=== PATIENT | female | born 1955 | race African-American/Black ===

== ENCOUNTER 2016-11-09 21:43 | Emergency (ER) | payer OTHER ==
[2016-11-09 22:04] VITALS: BP 129/72; PULSE 73; RESP 16; TEMP 98.2
[2016-11-09] MEDS ORDERED: hydrOXYzine HCL 25 MG TAB PO STA (22:31)
--- NOTE | 2016-11-09 22:31 | ED ---
General Adult HPI - General Chief complaint: Skin/Abscess/Foreign Body Stated complaint: itchy Time Seen by Provider: 11/09/16 22:21 Source: patient, RN notes reviewed Mode of arrival: ambulatory Limitations: no limitations - History of Present Illness Initial comments: 61-year-old female presents to the emergency Department chief complaint of itchy rash. Patient states started with imaging the finger webs and extends throughout the body. Patient states that she tried breath and increasing with no improvement to her symptoms. Patient states she is concerned due to the continued itching so she thought that she should be evaluated. Patient denies any fever chills. Patient denies any new soaps or detergents. Patient states she was concerned due to her symptoms so she thought that she should be evaluated. Patient denies any recent fever, chills, shortness of breath, chest pain, back pain, abdominal pain, nausea vomiting, numbness or tingling, dysuria or hematuria, constipation or diarrhea, headaches or visual changes, or any other current symptoms. - Related Data Home Medications Medication Instructions Recorded Confirmed Bisoprolol-Hctz 2.5-6.25 mg [Ziac 1 each PO 1500 12/14/15 12/14/15 2.5-6.25] Dicyclomine [Bentyl] 20 mg PO TID 12/14/15 12/14/15 Ergocalciferol [Vitamin D2] 1 tab PO Q7D 12/14/15 12/14/15 Hydrocodone/Acetaminophen [[place] 1 tab PO QID PRN 12/14/15 12/14/15 10-325] Levothyroxine Sodium [Synthroid] 50 mcg PO DAILY 12/14/15 12/14/15 Mesalamine [Delzicol] 800 mg PO TID 12/14/15 12/14/15 Multivitamins, Thera [Multivitamin] 1 tab PO DAILY 12/14/15 12/14/15 Omeprazole [PriLOSEC] 20 mg PO AC-BID 12/14/15 12/14/15 Previous Rx's Medication Instructions Recorded Permethrin 5% Cream [Elimite] 1 applic TOPICAL ONCE #1 cream..g. 11/09/16 hydrOXYzine HCL [Atarax] 10 mg PO TID #10 tab 11/09/16 predniSONE 50 mg PO DAILY #5 tab 11/09/16 Allergies Allergy/AdvReac Type Severity Reaction Status Date / Time No Known Allergies Allergy Verified 12/13/15 08:43 Review of Systems ROS Statement: Those systems with pertinent positive or pertinent negative responses have been documented in the HPI. ROS Other: All systems not noted in ROS Statement are negative. Past Medical History Past Medical History: Deep Vein Thrombosis (DVT), Hypertension, Osteoarthritis ( OA), Pulmonary Embolus (PE), Sleep Apnea/CPAP/BIPAP, Thyroid Disorder Additional Past Medical History / Comment(s): hx ulcer, colitis History of Any Multi-Drug Resistant Organisms: None Reported Past Surgical History: Hysterectomy, Tubal Ligation Additional Past Surgical History / Comment(s): little toe on rt foot surgery, abdominoplasty, liposuction Past Anesthesia/Blood Transfusion Reactions: No Reported Reaction Past Psychological History: No Psychological Hx Reported Smoking Status: Never smoker Past Alcohol Use History: Occasional Past Drug Use History: Marijuana - Past Family History Father Family Medical History: Cancer General Exam Limitations: no limitations General appearance: alert, in no apparent distress Head exam: Present: atraumatic, normocephalic, normal inspection Respiratory exam: Present: normal lung sounds bilaterally. Absent: respiratory distress, wheezes, rales, rhonchi, stridor Cardiovascular Exam: Present: regular rate, normal rhythm, normal heart sounds. Absent: systolic murmur, diastolic murmur, rubs, gallop, clicks GI/Abdominal exam: Present: soft, normal bowel sounds. Absent: distended, tenderness, guarding, rebound, rigid Neurological exam: Present: alert, oriented X3 Psychiatric exam: Present: normal affect, normal mood Skin exam: Present: warm, dry, intact, urticaria (To the abdomen), other ( Papular type rash in the finger webs.) Course Vital Signs 11/09/16 22:02 Temperature 98.2 F Pulse Rate 73 Respiratory 16 Rate Blood Pressure 129/72 O2 Sat by Pulse 97 Oximetry Medical Decision Making - Medical Decision Making 61-year-old male presents with what appears to look like scabies. There is also an ALLERGY component with some urticaria over the abdomen. We will treat patient with permethrin cream as well as a short course of steroids and antihistamine medication. Patient stated that she understood all questions have been answered. She will be discharged home. Disposition Clinical Impression: Scabies, Contact dermatitis Disposition: HOME SELF-CARE Condition: Stable Instructions: Dermatitis (ED), Scabies (ED) Additional Instructions: Please use medication as discussed. Please follow up with family doctor if symptoms have not improved over the next two days. Please return to the emergency room if your symptoms increase or worsen or for any other concerns. Prescriptions: hydrOXYzine HCL [Atarax] 10 mg PO TID #10 tab Permethrin 5% Cream [Elimite] 1 applic TOPICAL ONCE #1 cream..g. predniSONE 50 mg PO DAILY #5 tab Referrals: Sarah Garcia MD [Primary Care Provider] - 1-2 days Time of Disposition: 22:29
== END 2016-11-09 23:02 | disposition home or self-care (01) ==
LOC: EC 21:43
DX: L25.9 Unspecified contact dermatitis, unspecified cause (principal); B86 Scabies; I10 Essential (primary) hypertension; E07.9 Disorder of thyroid, unspecified; Z79.899 Other long term (current) drug therapy
CPT/HCPCS: 99282

== ENCOUNTER → 2024-03-26 | Outpatient (CLI) | payer MEDICARE, OTHER ==
--- NOTE | 2024-03-26 10:16 | CT ---
EXAMINATION TYPE: CT sinus wo con CT DLP: 621 mGycm, Automated exposure control for dose reduction was used. DATE OF EXAM: 03/26/2024 9:06 AM COMPARISON: None. CLINICAL INDICATION: Female, 68 years old with history of J32.9 Chronic sinusitis E04.1 Thyroid nodul e; , Chronic sinusitis TECHNIQUE: Multiple thin axial images were obtained through the paranasal sinuses without the use of IV contrast. Additional coronal and sagittal reformatted images were submitted for evaluation. Contrast used: none Oral contrast used: none FINDINGS: Frontal sinuses: Normally developed and aerated. Frontal Recess: Clear Maxillary Sinuses: Normally developed and aerated. Maxillary Infundibula([facility]): Clear, Aleta cell identified with narrowing of the infundibula.. Ethmoid sinuses: Normally developed and aerated. Ethmoidal notch: Unprotected bilateral anterior ethm oidal arteries. Sphenoid sinuses: Normally developed with minimal mucosal thickening in the posterior aspect on the r ight. There is sellar sphenoid sinus pneumatization without evidence of dehiscence. No dehiscence of carotid canal. No evidence of optic nerve dehiscence within the sphenoid sinus. No evidence of Onodi cells. Sphenoethmoidal recesses: Clear. Nasal septum: Within normal limits.. Nasal Turbinates: Within normal limits. Mastoid air cells & middle ears: The air cells are clear. The middle ears are grossly unremarkable. Modified Soft tissues & Brain: Partially seen without gross abnormality. Globes are intact. Other: Cribriform plate demonstrates symmetric Keros classification type 2 cribriform plate. No evidence of bony dehiscence of skull base. Lamina papyracea is intact without evidence of remote orbital fracture or orbital prolapse into the e thmoid sinus. IMPRESSION: 1. No significant mucosal sinus disease. 2. The ostiomeatal units, frontonasal and sphenoethmoidal recesses are clear. [facility], , 03/26/2024 10:14 AM
--- NOTE | 2024-03-26 11:41 | US ---
EXAMINATION TYPE: US thyroid st tissue head/neck DATE OF EXAM: 03/26/2024 COMPARISON: None available CLINICAL INDICATION: Female, 68 years old with history of THYROID E04.1; h/o nodules, on medication, biopsy on the rt at [facility] TECHNIQUE: Grayscale and color Doppler imaging of the thyroid gland. FINDINGS: GLAND SIZE: Right Lobe: 5.5 x 2.0 x 3.0 cm Overall Parenchyma: heterogeneous Left Lobe: 4.7 x 1.7 x 1.5 cm Overall Parenchyma: heterogeneous Isthmus Thickness: 0.3 cm NODULES RIGHT: # of nodules measured on right: measured largest - previous biopsy 1. 2.6 X 2.0 x 2.4 cm, mid , solid or almost completely solid, hypoechoic nodule, which is wider th an tall, with smooth margins, without echogenic foci. TR 4. Prior size: previous at [facility] LEFT: # of nodules measured on left: 1 1. 0.7 X 0.5 x 0.4 cm, mid , mixed cystic and solid, hypoechoic nodule, which is wider than tall, w ith smooth margins, without echogenic foci. TR 3. Prior size: previous [facility] ISTHMUS: # of nodules measured in the isthmus: 0 Bilateral neck scanned, no evidence of lymphadenopathy. IMPRESSION: 1. Right thyroid lobe 2.6 cm TR 4 nodule. Reported previous biopsy. Comparison with prior imaging is recommended to assess interval change. 2. Subcentimeter left thyroid lobe TR 3 nodule. Recommendation for #1. [facility], , 03/26/2024 11:39 AM
== END | disposition home or self-care (01) ==
LOC: RADCTMAIN 08:36
PROVIDERS: ATTEND Otolaryngology Facial Plastic Surgery
DX: J32.9 Chronic sinusitis, unspecified (principal); E04.2 Nontoxic multinodular goiter
CPT/HCPCS: 70486; 76536

== ENCOUNTER → 2024-05-04 | Outpatient (CLI) | payer MEDICARE, OTHER | END | disposition home or self-care (01) | LOC: LABPAT 16:24 | PROVIDERS: ATTEND Orthopaedic Surgery | DX: Z01.818 Encounter for other preprocedural examination (principal); Z22.322 Carrier or suspected carrier of Methicillin resistant Staphylococcus aureus; M16.12 Unilateral primary osteoarthritis, left hip | CPT/HCPCS: 86850; 86900; 86901; 87070 ==

== ENCOUNTER 2024-05-12 05:45 | Observation (INO) | payer MEDICARE, OTHER ==
[~2024-05-12 05:45] MED LIST: TRANEXAMIC 1,000 MG/100ML-NACL 1,000 MG in SALINE 1 100ML.BAG IVPB PRN
[2024-05-12] MEDS: LACTATED RINGERS 1,000 ML IV SCH (06:49)
[2024-05-12] MEDS: IV FLUID CONTINUATION 1,000 ML IV ONE ×2 (06:49→12:25)
[2024-05-12] MEDS: ACETAMINOPHEN TAB 500 MG TAB PO PRN (07:02)
[2024-05-12] MEDS: MELOXICAM 7.5 MG TAB PO PRN (07:02)
[2024-05-12] MEDS: DEXAMETHASONE SOD PHOSPHATE 4 MG/ML 1 ML VIAL IV ONE (07:03)
[2024-05-12] MEDS: ONDANSETRON 4 MG/2 ML VIAL IVP ONE (07:04)
[2024-05-12] MEDS: MIDAZOLAM 2 MG/2 ML VIAL IV ONE (07:12)
[2024-05-12 07:14] LABS: Basophils % (A) 0 %; Eosinophils # (A) 0.1 k/uL (0-0.7); Eosinophils % (A) 1 %; HCT 36.9 % (34.0-46.0); HGB 11.9 gm/dL (11.4-16.0); Lymphocytes # (A) 1.2 k/uL (1.0-4.8); Lymphocytes % (A) 17 %; MCH 30.5 pg (25.0-35.0); MCHC 32.1 g/dL (31.0-37.0); Mean Platelet Volume 6.7; Monocytes # (A) 0.4 k/uL (0-1.0); Monocytes % (A) 6 %; Neutrophils # (A) 5.2 k/uL (1.3-7.7); Neutrophils % (A) 74 %; Platelet Count 345 k/uL (150-450); RBC 3.89 m/uL (3.80-5.40); RDW 14.7 % (11.5-15.5); WBC 7.1 k/uL (3.8-10.6)
[2024-05-12] MEDS ORDERED: ROPIVACAINE 5 MG/ML 30 ML VIAL ONE (07:25)
[2024-05-12] MEDS ORDERED: DEXAMETHASONE SOD PHOSPHATE 4 MG/ML 1 ML VIAL ONE (07:25)
[2024-05-12] MEDS ORDERED: MIDAZOLAM 2 MG/2 ML VIAL ONE (07:25)
[2024-05-12] MEDS ORDERED: PROPOFOL 10 MG/ML 20 ML VIAL IV ONE (07:25)
[2024-05-12] MEDS ORDERED: PHENYLEPHRINE 10 MG/ML VIAL ONE (07:25)
[2024-05-12] MEDS ORDERED: TRANEXAMIC 1,000 MG/100ML-NACL PREMIX BAG ONE (07:25)
[2024-05-12] MEDS ORDERED: fentaNYL (PF) 50 MCG/ML 2 ML AMP ONE (07:25)
[2024-05-12 07:28] LABS: African American GFR (CKD) >90 (>60 ml/min/1.73 sqM); Anion Gap 2 mmol/L; Blood Urea Nitrogen 19 mg/dL (7-17); Calcium 8.6 mg/dL (8.4-10.2); Carbon Dioxide 36 mmol/L (22-30); Chloride 100 mmol/L (98-107); Glucose 108 mg/dL (74-99); Non-African American GFR(CKD) 85 (>60 ml/min/1.73 sqM); Sodium 138 mmol/L (137-145)
[2024-05-12 07:31] LABS: Potassium 3.4 mmol/L (3.5-5.1)
[2024-05-12 07:50] LABS: Prothrombin Time 10.6 sec (10.0-12.5)
[2024-05-12] MEDS: ceFAZolin 1,000 MG in SODIUM CHLORIDE 0.9% 1,000 ML IRRIGATION ONE (08:11)
[2024-05-12] MEDS ORDERED: NALOXONE 0.4 MG/ML 1 ML VIAL IV PRN (09:24)
[2024-05-12] MEDS ORDERED: MAGNESIUM HYDROXIDE 2,400 MG/30 ML CUP PO PRN (09:24)
[2024-05-12] MEDS ORDERED: HYDROmorphone 0.5 MG/0.5 ML SYRINGE IVP PRN (09:24)
[2024-05-12] MEDS ORDERED: ONDANSETRON 4 MG/2 ML VIAL IVP PRN (09:24)
[2024-05-12] MEDS ORDERED: oxyCODONE-APAP 5-325MG 1 EACH TAB PO PRN (09:27)
--- NOTE | 2024-05-12 09:44 | XR ---
EXAMINATION TYPE: XR Hip Limited LT, FL guidance operating room DATE OF EXAM: 05/12/2024 9:33 AM COMPARISON: Chest radiographs from CLINICAL INDICATION: Female, 68 years old with history of LEFT ANTERIOR HIP, , FINDINGS: Anterior left hip replacement. Underlying severe degenerative change of the left hip. Serial intraope rative fluoroscopic images show placement of left acetabular cup with internal fixation screw, remain ing of the proximal femur, and placement of the femoral stem component. Alignment grossly anatomic. T here is mild degenerative change of the right hip. 26 SEC FL 1.9337 DAP DOSE 3 images are submitted. IMPRESSION: Intraoperative fluoroscopy as outlined above. Uncomplicated appearance left total hip arthroplasty. [facility], , 05/12/2024 9:42 AM
--- NOTE | 2024-05-12 09:46 | P.OP ---
Date of Procedure: 05/12/24 Preoperative Diagnosis: Left hip severe osteoarthrosis Postoperative Diagnosis: Same Procedure(s) Performed: Left total hip arthroplastypress-fitanterior approach Implants: DePuy Corail size 11-125 degree collared press-fit femoral stem, 36+1.5 cobalt chrome femoral head, 54 mm [place] acetabular shell with neutral polyethylene liner. I did utilize a 25 mm x 6.5 mm cancellous screw. Anesthesia: regional, spinal Surgeon: Joaquim Harrell Printing Plate Setter #1: Fito Patterson Estimated Blood Loss (ml): 200 Pathology: none sent Condition: stable Disposition: PACU Indications for Procedure: The patient is a 68-year-old female who presents with progressive left hip pain secondary to osteoarthrosis despite conservative measures. A discussion of the risks and benefits of operative intervention versus continued conservative measures was made with the patient. She opted to proceed with surgery. Operative risks include infection, neurovascular injury, development of blood clots, fracture, leg length discrepancy, instability, possible component loosening/failure and possible need for subsequent procedures was discussed. Informed consent was obtained. Operative Findings: As below Description of Procedure: The patient was brought to the operating room, and after induction of spinal anesthesia was placed supine on the [place] table. Positioning was checked with fluoroscopy. The left hip was then prepped and draped in a normal fashion. A 12 cm incision was then made starting 2 fingerbreadths distal and 3 finger breaths posterior to the ASIS in line with the proximal femur. The skin was incised sharply. Subcutaneous tissues were divided sharply. Electrocautery was used for hemostasis. The fascia was split in line with skin incision. The interval between the sartorius and tensor fascia malcolm was then bluntly developed. The posterior fascia was opened with electrocautery. The lateral circumflex vessels were identified and cauterized prior to sectioning. A retr actor was placed along the superior femoral neck as well as the anterior acetabular rim. A wide capsulotomy was performed. The neck cut was then made at a 45 angle to the shaft approximately 1 1/2 cm above the level of the lesser trochanter. The head was extracted. Attention was then paid towards preparing the acetabular. Anterior and posterior retractors were placed. The remaining capsular labral tissue sharply debrided clearly defining the acetabular margins. I began reaming with a 49 mm reamer taking care to initially medialize then reaming at 45 of abduction and 20 of anteversion. Sequential reaming is performed up to 53 mm. A trial 54 mm acetabular shell was inserted in the same orientation and was fully seated. There was good rim fit and stability. Positioning was checked with fluoroscopy. The final [] mm acetabular shell was inserted again at 45 of abduction and 20 of anteversion. This was fully seated. There was good rim fit and stability. I did place a posterior superior 25 mm x 6.5 mm cancellous screw with good purchase. Again fluoroscopy was used to check the adequacy of placement. A neutral polyethylene liner was gently impacted. Care was taken to avoid any soft tissue interposition. Pulsatile lavage was utilized. Attention was then paid towards preparing the proximal femur. The central region was cleared of soft tissue. A canal finder was used to find the femoral canal. Sequential broaching was performed up to size 11 taking care to lateralize proximally. A calcar mill was used to fashion the medial calcar. There was good rotational stability. A 125 degree neck along with a 36 mm +1.5 head was placed. The hip was gently reduced. Fluoroscopy was used to check the adequacy of positioning along with leg lengths. I felt both were good. The hip was gently dislocated. The trial components were removed. The final size 11 collared 125 degree press-fit femoral stem was inserted parallel to the posterior cortex. This was fully seated and there was good rotational stability. A 36 mm +1.5 cobalt chrome femoral head was placed. This was gently impacted. The hip was then gently reduced. Final fluoroscopic view showed adequate placement implant along with church of leg length. Stability was checked with 80 of external rotation and 60 of extension of the right hip. The wound was irrigated with sterile lavage. The fascia was closed with running 0 Vicryl suture. There was minimal drainage therefore a deep drain was not placed. The second dose of IV TXA was given. The subcutaneous tissues were reapproximated interrupted 2-0 Vicryl sutures. The skin was reapproximated with 3-0 subcuticular strata fix suture. Skin tape and adhesive was applied. A sterile dressing was applied. The patient was then awoken from sedation and transferred to recovery room in good condition. Blood loss was estimated at 200 mL. No complications were incurred. Sponge and needle counts were correct at the end of the case. Fito GUTIÉRREZ assisted during the major components is case to include exposure, bone resection, implantation, and closure.
[2024-05-12] MEDS: HYDROmorphone 0.5 MG/0.5 ML SYRINGE IVP PRN ×2 (10:29→15:38)
--- NOTE | 2024-05-12 10:38 | XR ---
EXAMINATION TYPE: XR Hip Limited LT DATE OF EXAM: 05/12/2024 10:07 AM COMPARISON: None CLINICAL INDICATION: Female, 68 years old with history of Status post hip surgery, assess surgical al ignment, , FINDINGS: Image shows placement of left total hip vertebroplasty. Both acetabular cup and femoral stem componen ts of the prosthesis are well seated without periprosthetic fracture. Alignment grossly anatomic. Sca ttered soft tissue air related to recent operation. IMPRESSION: Uncomplicated postoperative appearance left total hip arthroplasty. [facility], , 05/12/2024 10:36 AM
[2024-05-12] MEDS: HYDROcodone/APAP 10-325MG 1 EACH TAB PO PRN (14:21)
--- NOTE | 2024-05-12 14:47 | P.ANPRN ---
Procedure Note - Anesthesia - Nerve Block Performed Left Guillermo Single Time Out Performed: Yes Date of Procedure: 05/12/24 Procedure Start Time: 07:11 Procedure Stop Time: 07:15 Location of Patient: PreOp Indication: Acute Post-Operative Pain, Requested by Surgeon Sedation Type: Sedate with meaningful contact maintained Preparation: Sterile Prep Position: Supine Needle Types: Pajunk Needle Gauge: 21 Ultrasound used to visualize needle placement: Yes Ultrasound used to observe medication spread: Yes Blood Aspirated: No Pain Paresthesia on Injection Noted: No Resistance on Injection: Normal Image Stored and Saved: Yes Events: Uneventful and Well Tolerated (Ropivacaine 0.5% 20 cc plus dexamethasone 4 mg)
[2024-05-12] MEDS ORDERED: FLUTICASONE NASAL 50MCG/SPRAY 16GM BTL EA NOSTRIL PRN (18:38)
[2024-05-12] MEDS: IPRATROPIUM-ALBUTEROL 3 ML NEB INHALATION SCH (20:54)
[2024-05-12] MEDS: hydrOXYzine pamoate 25 MG CAP PO PRN (21:20)
[2024-05-12] MEDS: SENNOSIDES-DOCUSATE SODIUM 1 EACH TAB PO SCH (21:20)
[2024-05-12] MEDS: DICYCLOMINE 20 MG TAB PO SCH (21:21)
[2024-05-12] MEDS: BALSALAZIDE DISODIUM 750 MG CAPSULE PO SCH (21:21)
[2024-05-13] MEDS: PANTOPRAZOLE 40 MG TABLET PO SCH (06:43)
[2024-05-13] MEDS: LEVOTHYROXINE 25 MCG TAB PO SCH (06:43)
[2024-05-13] MEDS: LORATADINE 10 MG TAB PO SCH (08:33)
[2024-05-13] MEDS: MULTIVITAMINS, THERA 1 EACH TAB PO SCH (08:33)
[2024-05-13] MEDS: BISOPROLOL-HCTZ 2.5-6.25 MG 1 EACH TAB PO SCH (08:33)
[2024-05-13] MEDS: RIVAROXABAN 10 MG TAB PO SCH (08:33)
[2024-05-13] MEDS: DULoxetine HCL 30 MG CAPSULE.DR PO SCH (08:33)
[2024-05-13] MEDS: ERGOCALCIFEROL 1,250 MCG (50,000 IU) CAPSULE PO SCH (08:33)
[2024-05-13 08:49] LABS: Basophils # (A) 0.01 X 10*3/uL (0.00-0.10); Basophils % (A) 0.1 %; Eosinophils # (A) 0 X 10*3/uL (0.04-0.35); Eosinophils % (A) 0 %; HCT 29.2 % (37.2-46.3); HGB 9.2 g/dL (12.0-15.0); Lymphocytes # (A) 1.18 X 10*3/uL (0.90-5.00); Lymphocytes % (A) 13.5 %; MCH 30.9 pg (27.0-32.0); MCHC 31.5 g/dL (32.0-37.0); Mean Platelet Volume 8.9 FL (9.5-12.2); Monocytes # (A) 0.86 X 10*3/uL (0.20-1.00); Monocytes % (A) 9.8 %; NRBC Per 100 WBC 0 X 10*3/uL (0.00-0.01); Neutrophils # (A) 6.65 X 10*3/uL (1.80-7.70); Neutrophils % (A) 76.1 %; Platelet Count 281 X 10*3/uL (140-440); RBC 2.98 X 10*6/uL (4.10-5.20); RDW 14.7 % (11.5-14.5); WBC 8.74 X 10*3/uL (4.50-10.00)
[2024-05-13] MEDS ORDERED: NON FORMULARY DRUG (Omega-3/Dha/Epa/Fish Oil [Fish Oil 500 Mg Softgel] 1 EACH Capsule) PO SCH (09:00)
--- NOTE | 2024-05-13 11:49 | CONS ---
CONSULTATION A 68-year-old white female with a history of COPD, asthma, urinary incontinence, hypothyroidism, irritable bowel syndrome, depression, came to the hospital for status post total knee replacement. Home medications have been reordered. She appears stable. She is up ambulating. PHYSICAL EXAMINATION: CARDIOVASCULAR: S1, S2. LUNGS: Clear. GI: Soft. HEMATOLOGY: Negative Homans. EXTREMITIES: No edema, status post hip replacement. Allergic rhinitis, asthma, COPD, urinary incontinence, hypothyroidism. Continue current home medications. She is cleared for discharge. She is appears to be stable medically. MMODL / IJN: [id number] /
--- NOTE | 2024-05-13 12:28 | P.DS ---
Providers Date of admission: 05/12/2024 Expected date of discharge: 05/13/24 Attending physician: Joaquim Harrell Consults: 05/12/24 09:24 Consult Physician Routine Consulting Provider: Terry Ashton Reason/Comments: medical management s/p direct anterior left total hip arthroplasty Do you want consulting provider notified?: Yes Primary care physician: Terry Ashton [facility] Course: Date of admission: 05/12/2024 Date of discharge: 05/13/2024 Admission diagnosis: Left hip osteoarthritis Discharge diagnosis: Same Attending physician: Dr. Harrell Surgical procedures: Direct anterior left total hip arthroplasty Brief history: Patient is a 68-year-old female with a history of progressive primary left hip osteoarthritis. At this point patient has failed conservative treatment measures and has opted to proceed with a elective direct anterior left total hip arthroplasty. Hospital course: Details of patient's surgery can be found in operative report. Patient tolerated the procedure well and was subsequently transported to orthopedic floor. Patient's orthopeidc and medical care was provided daily. Patient had daily laboratory tests performed for evaluation of overall blood counts. Patient had daily physical therapy to include strengthening range of motion as well as education with walker ambulation. Patient was treated with Xarelto for their postoperative DVT prophylaxis during their inpatient stay. Patient was noted to have a relatively uneventful postoperative course. Patient reported satisfactory pain control with oral pain medications by postoperative day 1. Patient showed satisfactory progress with physical therapy. Patient moved steadily through the program and had no difficulty meeting the goals by postoperative day 1. Given patient's otherwise satisfactory course and having met physical therapy goals, plan is to discharge patient home with health services on postoperative day 1. Discharge condition/disposition: Patient will be discharged home with health services in stable condition. Discharge medications: Instructions are given on resumption of patient's normal daily medications per primary care recommendation, in addition patient will be prescribed Eliquis 2.5 mg Twice daily x 2 weeks; senna; Percocet. Discharge instructions: 1. Wound care and infection precautions, keep incision dry and covered while showering, no lotions, creams, moisturizers. No soaking, tubs, pools, hottubs. Do not scrub over the incision. 2. Weight-bear as tolerated with walker / cane until follow-up. 3. Ice and elevate when necessary. Do not exceed 20 minutes per hour with ice pack. 4. Utilize compression sleeve until seen at first follow up appointment. 5. Visiting nursing care. 6. Home physical therapy. 7. Pain meds and anticoagulants per prescription. 8. Pain medication has potential to cause constipation. Increase oral fluid and fiber intake. Contact primary care provider if you have not had a bowel movement within 48 hours after discharge 9. No anti-inflammatory medication until discussed at first post operative visit, this including Motrin, Aleve, Mobic, Diclofenac. 10. Follow up in office at 2 weeks postop with Jaiden Gutierrez PA-C / Fito Patterson PA-C 11. Follow up with your primary care doctor 7-10 days after discharge. 12. Contact [facility] with any questions, . Assessment: Left hip osteoarthritis Procedures: Left total hip arthroplasty Patient Condition at Discharge: Good Plan - Discharge Summary Discharge Rx Participant: No New Discharge Prescriptions: New oxyCODONE-APAP 5-325MG [Percocet 5-325 mg] 1 tab PO Q6HR PRN #28 tab PRN Reason: Pain Apixaban [Eliquis] 2.5 mg PO BID #60 tab Sennosides/Docusate Sodium [Senna Plus 8.6-50 mg Softgel] 1 each PO DAILY #20 capsule No Action Dicyclomine [Bentyl] 20 mg PO TID Ergocalciferol [Vitamin D2] 1 tab PO Q7D Omeprazole [PriLOSEC] 20 mg PO AC-BID Levothyroxine Sodium [Synthroid] 25 mcg PO DAILY Bisoprolol-Hctz 2.5-6.25 mg [Ziac 2.5-6.25] 1 each PO DAILY Multivitamins, Thera [Multivitamin] 1 tab PO DAILY Hydrocodone/Acetaminophen [[place] 10-325] 1 tab PO QID PRN PRN Reason: Pain Nystatin [Nystatin Oral Susp] 1 unit PO DAILY PRN PRN Reason: thrush Albuterol Inhaler [Ventolin Hfa Inhaler] 1 - 2 inh INHALATION Q6H PRN PRN Reason: Shortness Of Breath Tolterodine ER [Detrol LA] 2 mg PO DAILY Mesalamine [Mesalamine ER] 0.375 gm PO BID DULoxetine HCL [Cymbalta] 30 mg PO DAILY Tiotropium Br/Olodaterol HCl [Stiolto Respimat Inhaler (10)] 1 puff INHALATION BID PRN PRN Reason: Shortness Of Breath Fluticasone Nasal Tabiona [Flonase Nasal Tabiona] 1 spray EA NOSTRIL DAILY PRN PRN Reason: Congestion Loratadine [Claritin] 10 mg PO DAILY [place]-3/Dha/Epa/Fish Oil [Fish Oil 500 mg Softgel] 1 each PO DAILY Discharge Medication List Bisoprolol-Hctz 2.5-6.25 mg [Ziac 2.5-6.25] 1 each PO DAILY 12/14/15 [History] Dicyclomine [Bentyl] 20 mg PO TID 12/14/15 [History] Ergocalciferol [Vitamin D2] 1 tab PO Q7D 12/14/15 [History] Hydrocodone/Acetaminophen [[place] 10-325] 1 tab PO QID PRN 12/14/15 [History] Levothyroxine Sodium [Synthroid] 25 mcg PO DAILY 12/14/15 [History] Multivitamins, Thera [Multivitamin] 1 tab PO DAILY 12/14/15 [History] Omeprazole [PriLOSEC] 20 mg PO AC-BID 12/14/15 [History] Fluticasone Nasal Tabiona [Flonase Nasal Tabiona] 1 spray EA NOSTRIL DAILY PRN 04/22/24 [History] Loratadine [Claritin] 10 mg PO DAILY 04/22/24 [History] Nystatin [Nystatin Oral Susp] 1 unit PO DAILY PRN 04/22/24 [History] [place]-3/Dha/Epa/Fish Oil [Fish Oil 500 mg Softgel] 1 each PO DAILY 04/22/24 [History] Albuterol Inhaler [Ventolin Hfa Inhaler] 1 - 2 inh INHALATION Q6H PRN 05/05/24 [History] DULoxetine HCL [Cymbalta] 30 mg PO DAILY 05/05/24 [History] Mesalamine [Mesalamine ER] 0.375 gm PO BID 05/05/24 [History] Tiotropium Br/Olodaterol HCl [Stiolto Respimat Inhaler (10)] 1 puff INHALATION BID PRN 05/05/24 [History] Tolterodine ER [Detrol LA] 2 mg PO DAILY 05/05/24 [History] Apixaban [Eliquis] 2.5 mg PO BID #60 tab 05/13/24 [Rx] Sennosides/Docusate Sodium [Senna Plus 8.6-50 mg Softgel] 1 each PO DAILY #20 capsule 05/13/24 [Rx] oxyCODONE-APAP 5-325MG [Percocet 5-325 mg] 1 tab PO Q6HR PRN #28 tab 05/13/24 [Rx] Follow up Appointment(s)/Referral(s): Fito Patterson PAC [PHYSICIAN SHELVING SUPERVISOR] - 05/27/24 10:10 am [facility], [NON-STAFF] - 1-2 Days ([facility] will call you to schedule your in home nursing and physical therapy visits. ) Patient Instructions/Handouts: Anterior Hip Replacement (GEN) Activity/Diet/Wound Care/Special Instructions: Orthopedic Discharge Instructions: 1. Wound care and infection precautions, keep incision dry and covered while showering, no lotions, creams, moisturizers. No soaking, pools, hot tubs. Do not scrub over incision. 2. Weight-bear as tolerated with walker / cane until follow-up. 3. Ice and elevate when necessary. Do not exceed 20 minutes per hour with ice pack. 4. Utilize compression sleeve until seen at first follow up appointment. 5. Pain meds and anticoagulants per prescription. 6. Pain medication has potential to cause constipation. Increase oral fluid and fiber intake. Contact primary care provider if you have not had a bowel movement within 48 hours after discharge. 7. No anti-inflammatory medication until discussed at first post operative visit, this including Motrin, Aleve, Mobic, Diclofenac. 8. Follow up in office at 2 weeks postop with Jaiden Gutierrez PA-C / [facility] [place] 9. Follow up with your primary care doctor 7-10 days after discharge. 10. Contact [facility] with any questions, . Keep incision clean, dry, intact. While showering, cover fusion tape with Saran wrap. Keep fusion tape on until follow-up appointment office in 2 weeks. Discharge Disposition: HOME WITH HOME HEALTH SERVICES
--- NOTE | 2024-05-13 12:38 | P.PN ---
Subjective Progress Note Date: 05/13/24 Principal diagnosis: Left hip osteoarthritis Patient was seen at bedside this morning lying in the semi-, position with dressing present over left anterior hip. Patient states she has been up walking several times since surgery yesterday without issue. Patient says she does need a walker for home. Patient says physical therapy did go well this morning and she walked down the hallway and up and down steps. Patient says her grandson will be able to help her out when she is home. Patient says pain is controlled with oral medication. Patient denies any other complaints at this time. Objective - Vital Signs Vital signs: Vital Signs Temp 98.2 F 05/13/24 07:31 Pulse 86 05/13/24 08:30 Resp 17 05/13/24 08:30 BP 151/87 05/13/24 07:31 Pulse Ox 97 05/13/24 07:31 FiO2 Intake & Output 05/12/24 05/13/24 05/13/24 18:59 06:59 18:59 Intake Total 951 Output Total 200 Balance 751 Weight 107.9 kg Intake: IV 951 Output: Estimated Blood Loss 200 Other: Voiding Method Toilet Toilet # Voids 1 3 3 - Exam Left hip: Incision is clean, dry, and intact. The exofin fusion tape is in good condit ion. There is minimal soft tissue swelling and ecchymosis surrounding the medial and lateral aspects of the incision. Calf is soft, no tenderness with palpation. Plantar flexion, dorsiflexion, EHL, FHL are intact. Sensory exam to light touch throughout the extremity is intact, dorsal pedis pulses 2+. - Labs CBC & Chem 7: 05/13/24 02:51 05/12/24 06:49 Labs: Abnormal Lab Results - Last 24 Hours (Table) 05/13/24 Range/Units 02:51 RBC 2.98 L (4.10-5.20) X 10*6/uL Hgb 9.2 L (12.0-15.0) g/dL Hct 29.2 L (37.2-46.3) % MCV 98.0 H (80.0-97.0) FL MCHC 31.5 L (32.0-37.0) g/dL RDW 14.7 H (11.5-14.5) % MPV 8.9 L (9.5-12.2) FL Eosinophils # 0 L (0.04-0.35) X 10*3/uL Assessment and Plan Assessment: 1. Left hip osteoarthritis -Postop day 1 status post direct anterior left total hip arthroplasty Plan: 1. Left hip osteoarthritis -direct anterior left total hip arthroplasty form yesterday, 05/12/2024. Patient stable bedside's morning with dressing present over left hip. Prescription for walker was signed. Discharge home today with health services. 2. Appreciate medical management 3. Pain management -[place]; Percocet 4. GI prophylaxis -senna 5. DVT prophylaxis -Xarelto in hospital. Going home with Eliquis 2.5 mg twice daily x 2 weeks 6. PT/OT - weight-bearing as tolerated with walker 7. Encourage incentive spirometer use 8. Discharge planning -discharge home today with health services Time with Patient: Less than 30
[2024-05-13 14:34] VITALS: BP 146/83; PULSE 65; RESP 18; TEMP 98.1
--- NOTE | 2024-05-14 11:04 | PN ---
PROGRESS NOTE A 68-year-old white female, status post hip surgery. She is doing well. The patient is ambulating. OBJECTIVE: VITAL SIGNS: 97% on room air. Blood pressure is 120 to 150s over 80s, temperature 98.2, pulse 86, respiratory rate 16 to 18. CARDIOVASCULAR: S1, S2. LUNGS: Scattered wheeze. HEMATOLOGY: Negative Homans. PSYCH: Fair mood and affect. Hemoglobin dropped to 9.2 from 11.9. She feels better. Home medications have been reordered. Possibly will be discharged home today as she is up ambulating already status post hip surgery. Continue current home medications. MMODL / IJN: [id number] /
--- NOTE | 2024-05-18 15:02 | P.HPOR ---
History of Present Illness H&P Date: 05/11/24 Chief Complaint: Left hip pain The patient is a 68-year-old female who presents with progressive left hip pain for the past 3 years. She notes anterior thigh and groin pain with weightbearing activities. She's tried medications in addition to previous injections without much relief. She notes daily pain that limits her normal function and activities. Review of Systems As per HPI Past Medical History Past Medical History: Cancer, Deep Vein Thrombosis (DVT), Hypertension, Osteoarthritis (OA), Pulmonary Embolus (PE), Sleep Apnea/CPAP/BIPAP, Thyroid Disorder Additional Past Medical History / Comment(s): hx ulcer, colitis History of Any Multi-Drug Resistant Organisms: None Reported Past Surgical History: Breast Surgery, Hysterectomy, Tubal Ligation Additional Past Surgical History / Comment(s): little toe on rt foot surgery,abdominoplasty, liposuction Past Anesthesia/Blood Transfusion Reactions: No Reported Reaction Past Psychological History: No Psychological Hx Reported Past Alcohol Use History: Occasional Past Drug Use History: Marijuana - Past Family History Father Family Medical History: Cancer Medications and Allergies Home Medications Medication Instructions Recorded Confirmed Type Hydrocodone/Acetaminophen [[place] 1 tab PO QID PRN 12/14/15 05/14/24 History 10-325] Multivitamins, Thera [Multivitamin] 1 tab PO DAILY 12/14/15 05/14/24 History Omeprazole [PriLOSEC] 20 mg PO AC-BID 12/14/15 05/14/24 History Loratadine [Claritin] 10 mg PO DAILY 04/22/24 05/14/24 History [place]-3/Dha/Epa/Fish Oil [Fish Oil 1 cap PO DAILY 04/22/24 05/14/24 History 500 mg Softgel] Albuterol Inhaler [Ventolin Hfa 2 puff INHALATION RT-QID PRN 05/05/24 05/14/24 History Inhaler] DULoxetine HCL [Cymbalta] 30 mg PO DAILY 05/05/24 05/14/24 History Mesalamine [Mesalamine ER] 1.5 gm PO QAM 05/05/24 05/14/24 History Tiotropium Br/Olodaterol HCl 2 puff INHALATION RT-DAILY 05/05/24 05/14/24 History [Stiolto Respimat Inhaler (10)] Apixaban [Eliquis] 2.5 mg PO BID #60 tab 05/13/24 05/14/24 Rx oxyCODONE-APAP 5-325MG [Percocet 1 tab PO Q6HR PRN #28 tab 05/13/24 05/14/24 Rx 5-325 mg] Ammonium Lactate Lotion 1 applic TOPICAL BID 05/14/24 05/14/24 History [Lac-Hydrin 12% Lotion] Azelastine HCl [Astepro] 2 spray EA NOSTRIL BID 05/14/24 05/14/24 History Cyclobenzaprine [Flexeril] 10 mg PO TID PRN #12 tablet 05/14/24 Rx Ergocalciferol [Vitamin D2 (1250 1,250 mcg PO WEEKLY 05/14/24 05/14/24 History Mcg = 91455 Iu)] Ibuprofen [Motrin] 800 mg PO BID PRN 05/14/24 05/14/24 History Levothyroxine Sodium [Synthroid] 25 mcg PO DAILY 05/14/24 05/14/24 History Montelukast [Singulair] 10 mg PO DAILY 05/14/24 05/14/24 History Potassium Chloride ER [K-Dur 20] 20 meq PO BID #8 tab 05/14/24 Rx Sennosides/Docusate Sodium [Senna 1 cap PO DAILY 05/14/24 05/14/24 History Plus 8.6-50 mg Softgel] Tolterodine Tartrate 2 mg PO DAILY 05/14/24 05/14/24 History Allergies Allergy/AdvReac Type Severity Reaction Status Date / Time No Known Allergies Allergy Verified 05/14/24 14:05 Physical Examination - Hip left Gait: antalgic Tenderness with palpation: anterior Pain with motion: internal rotation and hip flexion ROM: flexion: 70 degrees ROM: internal rotation: 0 degrees (With pain) ROM: external rotation: 50 degrees Crepitus with motion: Yes Strength: flexion: 5/5 Strength: abduction: 5/5 Tests: impingement tests: positive Results - Labs Result Diagrams: 05/13/24 02:51 05/12/24 06:49 - Diagnostic results Hip x-ray: image reviewed (X-rays of the left hip obtained in the office show severe osteoarthrosis with [id number] changes and subchondral sclerosis.) Assessment and Plan Assessment: Left hip severe osteoarthrosis History of DVT Plan: I talked to the patient at length regarding her condition along with treatment options. At this point she's quite symptomatic having pain and mechanical symptoms related to her left hip osteoarthrosis despite conservative measures. After a thorough discussion she opts to proceed with surgery. We will plan to proceed with left total hip arthroplasty utilizing an anterior approach. Risks and benefits were discussed at length in layman's terms. We will institute DVT prophylaxis postoperatively.
== END 2024-05-13 16:14 | disposition home health service (06) ==
LOC: OR 05:45 → 4SSUR 05:46 → OR 05-13 16:14
PROVIDERS: ADMIT Orthopaedic Surgery; ATTEND Orthopaedic Surgery
DX: M16.12 Unilateral primary osteoarthritis, left hip (principal); G89.18 Other acute postprocedural pain; J44.9 Chronic obstructive pulmonary disease, unspecified; E03.9 Hypothyroidism, unspecified; F32.A Depression, unspecified; G47.30 Sleep apnea, unspecified; I10 Essential (primary) hypertension; Z86.711 Personal history of pulmonary embolism; Z86.718 Personal history of other venous thrombosis and embolism; Z96.659 Presence of unspecified artificial knee joint; Z79.899 Other long term (current) drug therapy
CPT/HCPCS: 96376 ×2; 96365; 96366; 96375; 94640; 97161; 97166; 64999; 80048; 85025 ×2; 85610; 73501; 27130; G0379; G0378 ×2; C1776; J2250; J1100; J0690 ×3; J2405; J3010; J2795; J2704; J1171 ×2; J2371

== ENCOUNTER 2024-05-14 11:17 | Emergency (ER) | payer MEDICARE, OTHER ==
[2024-05-14 11:21] VITALS: TEMP 98.6
--- NOTE | 2024-05-14 12:08 | ED ---
General Adult HPI - General Chief complaint: Chest Pain Stated complaint: Chest pain R Time Seen by Provider: 05/14/24 11:23 Source: patient, RN notes reviewed Mode of arrival: wheelchair Limitations: no limitations - History of Present Illness Initial comments: Patient is a 68-year-old female presenting to the emergency department with right-sided lateral/posterior thorax discomfort. Onset of symptoms was prior to her surgery 2 days ago. Patient had left hip surgery. Discomfort has increased in that time. Patient also admits to having some cough. No significant dyspnea. Patient also has occasional productive cough. No fever. - Related Data Home Medications Medication Instructions Recorded Confirmed Hydrocodone/Acetaminophen [[place] 1 tab PO QID PRN 12/14/15 05/14/24 10-325] Multivitamins, Thera [Multivitamin] 1 tab PO DAILY 12/14/15 05/14/24 Omeprazole [PriLOSEC] 20 mg PO AC-BID 12/14/15 05/14/24 Loratadine [Claritin] 10 mg PO DAILY 04/22/24 05/14/24 [place]-3/Dha/Epa/Fish Oil [Fish Oil 1 cap PO DAILY 04/22/24 05/14/24 500 mg Softgel] Albuterol Inhaler [Ventolin Hfa 2 puff INHALATION RT-QID PRN 05/05/24 05/14/24 Inhaler] DULoxetine HCL [Cymbalta] 30 mg PO DAILY 05/05/24 05/14/24 Mesalamine [Mesalamine ER] 1.5 gm PO QAM 05/05/24 05/14/24 Tiotropium Br/Olodaterol HCl 2 puff INHALATION RT-DAILY 05/05/24 05/14/24 [Stiolto Respimat Inhaler (10)] Ammonium Lactate Lotion 1 applic TOPICAL BID 05/14/24 05/14/24 [Lac-Hydrin 12% Lotion] Azelastine HCl [Astepro] 2 spray EA NOSTRIL BID 05/14/24 05/14/24 Ergocalciferol [Vitamin D2 (1250 1,250 mcg PO WEEKLY 05/14/24 05/14/24 Mcg = 83675 Iu)] Ibuprofen [Motrin] 800 mg PO BID PRN 05/14/24 05/14/24 Levothyroxine Sodium [Synthroid] 25 mcg PO DAILY 05/14/24 05/14/24 Montelukast [Singulair] 10 mg PO DAILY 05/14/24 05/14/24 Sennosides/Docusate Sodium [Senna 1 cap PO DAILY 05/14/24 05/14/24 Plus 8.6-50 mg Softgel] Tolterodine Tartrate 2 mg PO DAILY 05/14/24 05/14/24 Previous Rx's Medication Instructions Recorded Apixaban [Eliquis] 2.5 mg PO BID #60 tab 05/13/24 oxyCODONE-APAP 5-325MG [Percocet 1 tab PO Q6HR PRN #28 tab 05/13/24 5-325 mg] Cyclobenzaprine [Flexeril] 10 mg PO TID PRN #12 tablet 05/14/24 Potassium Chloride ER [K-Dur 20] 20 meq PO BID #8 tab 05/14/24 Allergies Allergy/AdvReac Type Severity Reaction Status Date / Time No Known Allergies Allergy Verified 05/14/24 14:05 Review of Systems ROS Statement: Those systems with pertinent positive or pertinent negative responses have been documented in the HPI. ROS Other: All systems not noted in ROS Statement are negative. Constitutional: Denies: fever Eyes: Denies: eye pain ENT: Denies: ear pain Respiratory: Reports: as per HPI, cough Cardiovascular: Reports: as per HPI Endocrine: Denies: fatigue Gastrointestinal: Denies: abdominal pain Musculoskeletal: Reports: as per HPI Past Medical History Past Medical History: Deep Vein Thrombosis (DVT), Hypertension, Osteoarthritis (OA), Pulmonary Embolus (PE), Sleep Apnea/CPAP/BIPAP, Thyroid Disorder Additional Past Medical History / Comment(s): hx ulcer, colitis History of Any Multi-Drug Resistant Organisms: None Reported Past Surgical History: Hysterectomy, Tubal Ligation Additional Past Surgical History / Comment(s): little toe on rt foot surgery,abdominoplasty, liposuction Past Anesthesia/Blood Transfusion Reactions: No Reported Reaction Past Psychological History: No Psychological Hx Reported Smoking Status: Former smoker Past Alcohol Use History: Occasional - Past Family History Father Family Medical History: Cancer General Exam Limitations: no limitations General appearance: alert, in no apparent distress Head exam: Present: normocephalic Eye exam: Present: normal appearance Neck exam: Present: normal inspection Respiratory exam: Present: normal lung sounds bilaterally, chest wall tenderness (Right lateral posterior lower ribs) Cardiovascular Exam: Present: regular rate, normal rhythm GI/Abdominal exam: Present: soft. Absent: tenderness Extremities exam: Present: tenderness (Left hip, postoperative hip) Back exam: Present: tenderness (Right lateral/lower posterior ribs) Neurological exam: Present: alert Psychiatric exam: Present: normal affect, normal mood Skin exam: Present: normal color Course Vital Signs 05/14/24 11:18 Temperature 98.6 F Pulse Rate 91 Respiratory 16 Rate Blood Pressure 132/91 O2 Sat by Pulse 97 Oximetry EKG Findings - EKG Results: EKG: interpreted by ERMD, sinus rhythm, normal axis, normal QRS, normal ST/T Medical Decision Making - Medical Decision Making Was pt. sent in by a medical professional or institution ([facility] [place], [facility]ER, urgent care, hospital, or fpc...) When possible be specific @ -No Did you speak to anyone other than the patient for history (EMS, parent, family, police, friend...)? What history was obtained from this source @ -No Did you review nursing and triage notes (agree or disagree)? Why? @ -I reviewed and agree with nursing and triage notes Were old charts reviewed (outside hosp., previous admission, EMS record, old EKG, old radiological studies, urgent care reports/EKG's, fpc records)? Report findings @ -Previous admission review Differential Diagnosis (chest pain, altered mental status, abdominal pain women, abdominal pain men, vaginal bleeding, weakness, fever, dyspnea, syncope, headache, dizziness, GI bleed, back pain, seizure, CVA, palpatations, mental health, musculoskeletal)? @ -Differential Back Pain: Strain, zoster, cauda equina syndrome, epidural abscess, vertebral osteomyelitis, discitis, fracture, subluxation, disc herniation, DJD, spinal stenosis, dissection, AAA, pancreatitis, peptic ulcer disease, pyelonephritis, kidney stone, this is not meant to be an all-inclusive list. EKG interpreted by me (3pts min.). @ -As above X-rays interpreted by me (1pt min.). @ -None done CT interpreted by me (1pt min.). @ -CT scan of the chest does not show infiltrate or embolism U/S interpreted by me (1pt. min.). @ -None done What testing was considered but not performed or refused? (CT, X-rays, U/S, labs)? Why? @ -None What meds were considered but not given or refused? Why? @ -None Did you discuss the management of the patient with other professionals (professionals i.e. , PA, PIPELAYER, lab, RT, psych nurse, social service director, senior database programmer, teacher, tank officer, outpatient case manager)? Give summary @ -I did page Dr. Ashton however he is not available Was smoking cessation discussed for >3mins.? @ -No Was critical care preformed (if so, how long)? @ -No Were there social determinants of health that impacted care today? How? (Homelessness, low income, unemployed, alcoholism, drug addiction, transportation, low edu. Level, literacy, decrease access to med. care, fpc, rehab)? @ -No Was there de-escalation of care discussed even if they declined (Discuss DNR or withdrawal of care, Hospice)? DNR status @ -No What co-morbidities impacted this encounter? (DM, HTN, Smoking, COPD, CAD, Cancer, CVA, ARF, Chemo, Hep., AIDS, mental health diagnosis, sleep apnea, morbid obesity)? @ -Recent hip surgery Was patient admitted / discharged? Hospital course, mention meds given and r oute, prescriptions, significant lab abnormalities, going to OR and other pertinent info. @ -Patient presents with recent hip surgery with pleuritic type right chest discomfort. Evaluation unremarkable. Patient has low potassium and that has been replaced. Patient will be provided short-term prescription and recommended close follow-up. Patient we discharged with close follow-up. Undiagnosed new problem with uncertain prognosis? @ -No Drug Therapy requiring intensive monitoring for toxicity (Heparin, Nitro, Insulin, Cardizem)? @ -No Were any procedures done? @ -No Diagnosis/symptom? @ -Pleuritic chest pain Acute, or Chronic, or Acute on Chronic? @ -Acute Uncomplicated (without systemic symptoms) or Complicated (systemic symptoms)? @ -Complicated with hypokalemia Side effects of treatment? @ -No Exacerbation, Progression, or Severe Exacerbation? @ -No Poses a threat to life or bodily function? How? (Chest pain, USA, MD, pneumonia, PE, COPD, DKA, ARF, appy, cholecystitis, CVA, Diverticulitis, Homicidal, Suicidal, threat to staff... and all critical care pts) @ -No - Lab Data Result diagrams: 05/14/24 12:12 05/14/24 12:12 Lab Results 05/14/24 05/14/24 05/14/24 Range/Units 12:12 12:12 12:12 WBC 10.6 (3.8-10.6) k/uL RBC 3.20 L (3.80-5.40) m/uL Hgb 9.9 L D (11.4-16.0) gm/dL Hct 30.1 L (34.0-46.0) % MCV 94.1 (80.0-100.0) fL MCH 30.8 (25.0-35.0) pg MCHC 32.8 (31.0-37.0) g/dL RDW 15.2 (11.5-15.5) % Plt Count 306 (150-450) k/uL MPV 7.3 Neutrophils % 80 % Lymphocytes % 12 % Monocytes % 7 % Eosinophils % 0 % Basophils % 0 % Neutrophils # 8.4 H (1.3-7.7) k/uL Lymphocytes # 1.3 (1.0-4.8) k/uL Monocytes # 0.7 (0-1.0) k/uL Eosinophils # 0.0 (0-0.7) k/uL Basophils # 0.0 (0-0.2) k/uL PT 10.8 (10.0-12.5) sec INR 1.0 (<1.2) APTT 25.7 (22.0-30.0) sec Sodium 135 L (137-145) mmol/L Potassium 2.8 L (3.5-5.1) mmol/L Chloride 98 (98-107) mmol/L Carbon Dioxide 34 H (22-30) mmol/L Anion Gap 3 mmol/L BUN 10 (7-17) mg/dL Creatinine 0.61 (0.52-1.04) mg/dL Est GFR (CKD-EPI)AfAm >90 (>60 ml/min/1.73 sqM) Est GFR (CKD-EPI)NonAf >90 (>60 ml/min/1.73 sqM) Glucose 102 H (74-99) mg/dL Plasma Lactic Acid Hero (0.7-2.0) mmol/L Calcium 7.9 L (8.4-10.2) mg/dL Total Bilirubin 1.1 (0.2-1.3) mg/dL AST 49 H (14-36) U/L ALT 19 (4-34) U/L Alkaline Phosphatase 123 (38-126) U/L Total Protein 6.7 (6.3-8.2) g/dL Albumin 3.6 (3.5-5.0) g/dL Influenza Type A (PCR) (Not Detectd) Influenza Type B (PCR) (Not Detectd) RSV (PCR) (Not Detectd) SARS-CoV-2 (PCR) (Not Detectd) 05/14/24 05/14/24 Range/Units 12:12 12:12 WBC (3.8-10.6) k/uL RBC (3.80-5.40) m/uL Hgb (11.4-16.0) gm/dL Hct (34.0-46.0) % MCV (80.0-100.0) fL MCH (25.0-35.0) pg MCHC (31.0-37.0) g/dL RDW (11.5-15.5) % Plt Count (150-450) k/uL MPV Neutrophils % % Lymphocytes % % Monocytes % % Eosinophils % % Basophils % % Neutrophils # (1.3-7.7) k/uL Lymphocytes # (1.0-4.8) k/uL Monocytes # (0-1.0) k/uL Eosinophils # (0-0.7) k/uL Basophils # (0-0.2) k/uL PT (10.0-12.5) sec INR (<1.2) APTT (22.0-30.0) sec Sodium (137-145) mmol/L Potassium (3.5-5.1) mmol/L Chloride (98-107) mmol/L Carbon Dioxide (22-30) mmol/L Anion Gap mmol/L BUN (7-17) mg/dL Creatinine (0.52-1.04) mg/dL Est GFR (CKD-EPI)AfAm (>60 ml/min/1.73 sqM) Est GFR (CKD-EPI)NonAf (>60 ml/min/1.73 sqM) Glucose (74-99) mg/dL Plasma Lactic Acid Hero 1.4 (0.7-2.0) mmol/L Calcium (8.4-10.2) mg/dL Total Bilirubin (0.2-1.3) mg/dL AST (14-36) U/L ALT (4-34) U/L Alkaline Phosphatase (38-126) U/L Total Protein (6.3-8.2) g/dL Albumin (3.5-5.0) g/dL Influenza Type A (PCR) Not Detected (Not Detectd) Influenza Type B (PCR) Not Detected (Not Detectd) RSV (PCR) Not Detected (Not Detectd) SARS-CoV-2 (PCR) Not Detected (Not Detectd) Disposition Clinical Impression: Chest wall pain, Hypokalemia Disposition: HOME SELF-CARE Condition: Stable Instructions (If sedation given, give patient instructions): Chest Wall Pain (ED), Hypokalemia (ED) Additional Instructions: Prescription sent to pharmacy. Please do follow-up with her primary care physician in the next couple of days for recheck. You will need to have your potassium rechecked no later than Saturday. Return for increased pain, difficulty breathing, worsening or changing symptoms or any other concerns. Prescriptions: Cyclobenzaprine [Flexeril] 10 mg PO TID PRN #12 tablet PRN Reason: Pain Potassium Chloride ER [K-Dur 20] 20 meq PO BID #8 tab Is patient prescribed a controlled substance at d/c from ED?: No Referrals: Terry Ashton MD [Primary Care Provider] - 1-2 days Time of Disposition: 15:10
[2024-05-14] MEDS: MORPHINE SULFATE 4 MG/ML SYRINGE IVP STA (12:37)
[2024-05-14 12:46] LABS: Partial Thromboplastin Time 25.7 sec (22.0-30.0); Prothrombin Time 10.8 sec (10.0-12.5)
[2024-05-14 12:48] LABS: ALT 19 U/L (4-34); AST 49 U/L (14-36); African American GFR (CKD) >90 (>60 ml/min/1.73 sqM); Albumin 3.6 g/dL (3.5-5.0); Alkaline Phosphatase 123 U/L (38-126); Anion Gap 3 mmol/L; Blood Urea Nitrogen 10 mg/dL (7-17); Calcium 7.9 mg/dL (8.4-10.2); Carbon Dioxide 34 mmol/L (22-30); Chloride 98 mmol/L (98-107); Glucose 102 mg/dL (74-99); Non-African American GFR(CKD) >90 (>60 ml/min/1.73 sqM); Potassium 2.8 mmol/L (3.5-5.1); Sodium 135 mmol/L (137-145); Total Bilirubin 1.1 mg/dL (0.2-1.3); Total Protein 6.7 g/dL (6.3-8.2)
[2024-05-14 12:54] LABS: Basophils % (A) 0 %; Eosinophils % (A) 0 %; HCT 30.1 % (34.0-46.0); Lymphocytes # (A) 1.3 k/uL (1.0-4.8); Lymphocytes % (A) 12 %; MCH 30.8 pg (25.0-35.0); MCHC 32.8 g/dL (31.0-37.0); MCV 94.1 fL (80.0-100.0); Mean Platelet Volume 7.3; Monocytes # (A) 0.7 k/uL (0-1.0); Monocytes % (A) 7 %; Neutrophils # (A) 8.4 k/uL (1.3-7.7); Neutrophils % (A) 80 %; Platelet Count 306 k/uL (150-450); RDW 15.2 % (11.5-15.5); WBC 10.6 k/uL (3.8-10.6)
[2024-05-14 13:00] LABS: HGB 9.9 gm/dL (11.4-16.0)
--- NOTE | 2024-05-14 13:36 | CT ---
EXAMINATION TYPE: CT angio chest CT DLP: 465.7 mGycm, Automated exposure control for dose reduction was used. DATE OF EXAM: 05/14/2024 1:28 PM COMPARISON: None CLINICAL INDICATION:Female, 68 years old with history of R cp; right chest pain, recent surgery TECHNIQUE/CONTRAST: CTA scan of the thorax is performed with IV Contrast, patient injected with 100 mL of Isovue 370, pul monary embolism protocol. MIP images are created and reviewed. FINDINGS: Pulmonary Artery: There is no evidence for a filling defect within the pulmonary vasculature to sugge st acute pulmonary embolism. The pulmonary artery is enlarged measuring 3.6 cm in diameter. No reflu x of contrast in the IVC or hepatic veins. Lungs/Pleura: No pleural effusion or pneumothorax. Minimal subpleural left lower lung atelectatic sly nge. No focal consolidation. No suspicious pulmonary nodule or mass. Airway: Large airways are patent. Heart: The heart is mildly enlarged for size.. Trace anterior pericardial effusion. Vasculature: No evidence of aortic aneurysm. Mediastinum: No evidence of adenopathy. Musculoskeletal: No acute osseous abnormalities. Bilateral shoulder arthropathy. Degenerative disease most pronounced involving the lower thoracic spine. Soft Tissues: Postsurgical changes identified within the right breast with 1.7 cm density identified (series 401, image 71). No visualized maxillary adenopathy. Lower neck: Enlarged right thyroid lobe nodule with substernal extension. Upper Abdomen: No significant findings. IMPRESSION: 1. No evidence of pulmonary embolism or acute thoracic process. 2. Postsurgical changes with a right breast with a 1.7 cm density. May represent postsurgical changes versus other etiologies. Correlate with prior breast imaging. 3. Cardiomegaly. 4. Dilated main pulmonary artery which can seen with pulmonary arterial hypertension. [facility], , 05/14/2024 1:34 PM
[2024-05-14] MEDS: HYDROmorphone 1 MG/ML 1 ML SYRINGE IVP STA (14:16)
[2024-05-14] MEDS: POTASSIUM CHLORIDE 10 MEQ in WATER FOR INJECTION 1 100ML.BAG IVPB STA (14:17)
[2024-05-14] MEDS: POTASSIUM CHLORIDE ER 20 MEQ TAB.ER PO STA ×2 (14:17→15:25)
[2024-05-14 15:16] VITALS: BP 124/86; PULSE 90; RESP 18
== END 2024-05-14 15:25 | disposition home or self-care (01) ==
LOC: EC 11:17
DX: R07.89 Other chest pain (principal); E87.6 Hypokalemia; Z87.891 Personal history of nicotine dependence
CPT/HCPCS: 36415; 93005; 80053; 83605; 85025; 85610; 85730; 87636; 71275; 99285; 96365; 96375 ×2; J2270; J1171; J3480; Q9967

== ENCOUNTER 2024-05-29 10:23 | Day surgery (SDC) | payer MEDICARE, OTHER ==
--- NOTE | 2024-05-29 12:57 | US ---
EXAMINATION TYPE: US FNA thyroid first lesion DATE OF EXAM: 05/29/2024 11:43 AM COMPARISON: 03/26/2024 CLINICAL INDICATION:Female, 68 years old with history of E04.1 NONTOXIC SINGLE THYROID NODULE; , ATTENDING: Dr. Leroy Nugent PROCEDURE: Informed consent was obtained. The risks and benefits of the procedure were discussed with the patien t. The site was marked. Timeout procedure was performed Ultrasound imaging demonstrates right thyroid nodule The patient was prepped, draped in the usual sterile fashion, and locally anesthetized with 1% lidoca ine. Five fine needle aspiration were then performed with a 25 gauge needle. Samples were sent to [facility] pathology department for further analysis. Patient tolerated the procedure without incident and wa s sent home in stable condition. IMPRESSION: Successful ultrasound guided fine needle aspiration [facility], , 05/29/2024 12:55 PM
[2024-05-29 16:53] VITALS: RESP 18; TEMP 98
[2024-05-29 16:55] VITALS: BP 141/74; PULSE 68
== END 2024-05-29 12:00 | disposition home or self-care (01) ==
LOC: RADPROMAIN 10:23
PROVIDERS: ATTEND Otolaryngology Facial Plastic Surgery
DX: E04.1 Nontoxic single thyroid nodule (principal)
CPT/HCPCS: 10005; 88173; 88305

== ENCOUNTER → 2024-06-16 | Outpatient (CLI) | payer MEDICARE, OTHER ==
[2024-06-16 15:45] LABS: HGB 11.3 g/dL (12.0-15.0); MCH 29.4 pg (27.0-32.0); MCHC 29.7 g/dL (32.0-37.0); Mean Platelet Volume 8.6 FL (9.5-12.2); NRBC Per 100 WBC 0 X 10*3/uL (0.00-0.01); Platelet Count 355 X 10*3/uL (140-440); RBC 3.84 X 10*6/uL (4.10-5.20); RDW 14.6 % (11.5-14.5); WBC 6.11 X 10*3/uL (4.50-10.00)
[2024-06-16 16:00] LABS: ALT 21 U/L (8-44); AST 28 U/L (13-35); Albumin 4.1 g/dL (3.8-4.9); Albumin/Globulin Ratio 1.28 Ratio (1.60-3.17); Alkaline Phosphatase 189 U/L (41-126); BUN/Creat Ratio 16.88 Ratio (12.00-20.00); Blood Urea Nitrogen 13.5 mg/dL (9.0-27.0); Calcium 8.9 mg/dL (8.7-10.3); Carbon Dioxide 28.1 mmol/L (21.6-31.8); Chloride 101 mmol/L (96-109); Globulin 3.2 g/dL (1.6-3.3); Glucose 108 mg/dL (70-110); Potassium 4.1 mmol/L (3.5-5.5); Sodium 141 mmol/L (135-145); Total Bilirubin 0.4 mg/dL (0.3-1.2); Total Protein 7.3 g/dL (6.2-8.2)
== END | disposition home or self-care (01) ==
LOC: LABWHC1 10:23
PROVIDERS: ATTEND Internal Medicine Gastroenterology
DX: K51.90 Ulcerative colitis, unspecified, without complications (principal)
CPT/HCPCS: 36415; 80053; 85027

== ENCOUNTER → 2024-06-17 | Outpatient (CLI) | payer MEDICARE, OTHER ==
[2024-06-17 15:30] LABS: INR 0.94 sec (0.93-1.11); Prothrombin Time 10.6 sec (9.9-11.9)
== END | disposition home or self-care (01) ==
LOC: LABPAT 09:25
PROVIDERS: ATTEND Orthopaedic Surgery
DX: Z01.812 Encounter for preprocedural laboratory examination (principal); M16.11 Unilateral primary osteoarthritis, right hip
CPT/HCPCS: 36415; 85610; 86850; 86900; 86901

== ENCOUNTER 2024-06-23 05:40 | Day surgery (SDC) | payer MEDICARE, OTHER ==
--- NOTE | 2024-05-11 08:27 | P.HPOR ---
History of Present Illness H&P Date: 05/11/24 Chief Complaint: Left hip pain The patient is a 68-year-old female who presents with progressive left hip pain for the past 3 years. She notes anterior thigh and groin pain with weightbearing activities. She's tried medications in addition to previous injections without much relief. She notes daily pain that limits her normal function and activities. Review of Systems As per HPI Past Medical History Past Medical History: Cancer, Deep Vein Thrombosis (DVT), Hypertension, Osteoarthritis (OA), Pulmonary Embolus (PE), Sleep Apnea/CPAP/BIPAP, Thyroid Disorder Additional Past Medical History / Comment(s): hx ulcer, colitis History of Any Multi-Drug Resistant Organisms: None Reported Past Surgical History: Breast Surgery, Hysterectomy, Tubal Ligation Additional Past Surgical History / Comment(s): little toe on rt foot surgery,abdominoplasty, liposuction Past Anesthesia/Blood Transfusion Reactions: No Reported Reaction Past Psychological History: No Psychological Hx Reported Past Alcohol Use History: Occasional Past Drug Use History: Marijuana - Past Family History Father Family Medical History: Cancer Medications and Allergies Home Medications Medication Instructions Recorded Confirmed Type Bisoprolol-Hctz 2.5-6.25 mg [Ziac 1 each PO DAILY 12/14/15 05/05/24 History 2.5-6.25] Dicyclomine [Bentyl] 20 mg PO TID 12/14/15 05/05/24 History Ergocalciferol [Vitamin D2] 1 tab PO Q7D 12/14/15 05/05/24 History Hydrocodone/Acetaminophen [[place] 1 tab PO QID PRN 12/14/15 05/05/24 History 10-325] Levothyroxine Sodium [Synthroid] 25 mcg PO DAILY 12/14/15 05/05/24 History Multivitamins, Thera [Multivitamin] 1 tab PO DAILY 12/14/15 05/05/24 History Omeprazole [PriLOSEC] 20 mg PO AC-BID 12/14/15 05/05/24 History Fluticasone Nasal [place] [Flonase 1 spray EA NOSTRIL DAILY PRN 04/22/24 05/05/24 History Nasal [place]] Loratadine [Claritin] 10 mg PO DAILY 04/22/24 05/05/24 History Nystatin [Nystatin Oral Susp] 1 unit PO DAILY PRN 04/22/24 05/05/24 History [place]-3/Dha/Epa/Fish Oil [Fish Oil 1 each PO DAILY 04/22/24 05/05/24 History 500 mg Softgel] Albuterol Inhaler [Ventolin Hfa 1 - 2 inh INHALATION Q6H PRN 05/05/24 05/05/24 History Inhaler] DULoxetine HCL [Cymbalta] 30 mg PO DAILY 05/05/24 05/05/24 History Mesalamine [Mesalamine ER] 0.375 gm PO BID 05/05/24 05/05/24 History Tiotropium Br/Olodaterol HCl 1 puff INHALATION BID PRN 05/05/24 05/05/24 History [Stiolto Respimat Inhaler (10)] Tolterodine ER [Detrol LA] 2 mg PO DAILY 05/05/24 05/05/24 History Allergies Allergy/AdvReac Type Severity Reaction Status Date / Time No Known Allergies Allergy Verified 05/05/24 13:28 Physical Examination - Hip left Gait: antalgic Tenderness with palpation: anterior Pain with motion: internal rotation and hip flexion ROM: flexion: 70 degrees ROM: internal rotation: 0 degrees (With pain) ROM: external rotation: 50 degrees Crepitus with motion: Yes Strength: flexion: 5/5 Strength: abduction: 5/5 Tests: impingement tests: positive Results - Diagnostic results Hip x-ray: image reviewed (X-rays of the left hip obtained in the office show severe osteoarthrosis with [id number] changes and subchondral sclerosis.) Assessment and Plan Assessment: Left hip severe osteoarthrosis History of DVT Plan: I talked to the patient at length regarding her condition along with treatment options. At this point she's quite symptomatic having pain and mechanical symptoms related to her left hip osteoarthrosis despite conservative measures. After a thorough discussion she opts to proceed with surgery. We will plan to proceed with left total hip arthroplasty utilizing an anterior approach. Risks and benefits were discussed at length in layman's terms. We will institute DVT prophylaxis postoperatively.
--- NOTE | 2024-06-22 08:24 | P.HPOR ---
History of Present Illness H&P Date: 06/22/24 Chief Complaint: Right hip pain The patient is a 68-year-old female who presents with progressive right hip pain for the past 3 years. She is having pain with any weightbearing activities. She notes groin and thigh pain. She has tried medications in addition to injections without much relief. She notes daily pain that limits her. Review of Systems Per HPI Past Medical History Past Medical History: Deep Vein Thrombosis (DVT), Hyperlipidemia, Hypertension, Osteoarthritis (OA), Pulmonary Embolus (PE), Sleep Apnea/CPAP/BIPAP, Thyroid Disorder Additional Past Medical History / Comment(s): hx ulcer, colitis History of Any Multi-Drug Resistant Organisms: None Reported Past Surgical History: Hysterectomy, Tubal Ligation Additional Past Surgical History / Comment(s): little toe on rt foot surgery,abdominoplasty, liposuction, ivc filter, Past Anesthesia/Blood Transfusion Reactions: No Reported Reaction Additional Past Anesthesia/Blood Transfusion Reaction / Comment(s): no reaction to blood tx Smoking Status: Never smoker - Past Family History Father Family Medical History: Cancer Medications and Allergies Home Medications Medication Instructions Recorded Confirmed Type Hydrocodone/Acetaminophen [[place] 1 tab PO QID PRN 12/14/15 06/17/24 History 10-325] Multivitamins, Thera [Multivitamin] 1 tab PO DAILY 12/14/15 06/17/24 History Omeprazole [PriLOSEC] 20 mg PO AC-BID 12/14/15 06/17/24 History [place]-3/Dha/Epa/Fish Oil [Fish Oil 1 cap PO DAILY 04/22/24 06/17/24 History 500 mg Softgel] Albuterol Inhaler [Ventolin Hfa 2 puff INHALATION RT-QID PRN 05/05/24 06/17/24 History Inhaler] DULoxetine HCL [Cymbalta] 30 mg PO DAILY 05/05/24 06/17/24 History Mesalamine [Mesalamine ER] 1.5 gm PO QAM 05/05/24 06/17/24 History Tiotropium Br/Olodaterol HCl 2 puff INHALATION RT-DAILY 05/05/24 06/17/24 History [Stiolto Respimat Inhaler (10)] Ammonium Lactate Lotion 1 applic TOPICAL BID 05/14/24 06/17/24 History [Lac-Hydrin 12% Lotion] Azelastine HCl [Astepro] 2 spray EA NOSTRIL BID 05/14/24 06/17/24 History Ergocalciferol [Vitamin D2 (1250 1,250 mcg PO WEEKLY 05/14/24 06/17/24 History Mcg = 22228 Iu)] Levothyroxine Sodium [Synthroid] 25 mcg PO DAILY 05/14/24 06/17/24 History Montelukast [Singulair] 10 mg PO DAILY 05/14/24 06/17/24 History Tolterodine Tartrate 2 mg PO DAILY 05/14/24 06/17/24 History Amoxicillin 875 mg PO Q12HR 06/17/24 06/17/24 History Dicyclomine [Bentyl] 10 mg PO DIRECTED 06/17/24 06/17/24 History Ferosul 325 mg PO DAILY 06/17/24 06/17/24 History Fexofenadine HCl [Leslie Allergy] 180 mg PO DAILY 06/17/24 06/17/24 History Fluconaszole 50 mg PO DAILY 06/17/24 06/17/24 History Hairskinnails 1 tab PO DAILY 06/17/24 06/17/24 History Losartan(Unk) 10 mg PO DAILY 06/17/24 06/17/24 History Allergies Allergy/AdvReac Type Severity Reaction Status Date / Time No Known Allergies Allergy Verified 05/14/24 14:05 Physical Examination - Hip right Gait: antalgic Tenderness with palpation: anterior Pain with motion: internal rotation and hip flexion ROM: flexion: 70 degrees ROM: internal rotation: 0 degrees (With pain) ROM: external rotation: 50 degrees Strength: extension: 5/5 Strength: flexion: 5/5 Strength: abduction: 5/5 Tests: impingement tests: positive Results The patient is a well-developed well-nourished female approximately 5 foot 8, 234 pounds of endomorphic habitus. HEENT exam is nonfocal, neck is supple. She has painful passive motion of the right hip. Straight leg raise is negative. Her distal neurovascular exam appears intact in the right lower extremity. She has an antalgic gait pattern. - Diagnostic results Hip x-ray: image reviewed (2 views of the right hip obtained in the office show severe osteoarthrosis with [id number] changes and subchondral sclerosis.) Assessment and Plan Assessment: Right hip severe osteoarthrosis History of DVT/PE with IVC filter Plan: I talked to the patient at length regarding her condition along with treatment options. At this point she is quite symptomatic having significant pain related to her right hip osteoarthrosis despite conservative measures. After a thorough discussion she opts to proceed with surgery. We will plan to proceed with right total hip arthroplasty utilizing an anterior approach. Risks and benefits were discussed at length in layman's terms. We will institute DVT prophylaxis postoperatively.
[2024-06-23] MEDS ORDERED: LIDOCAINE 1% (10MG/ML) FOR IV START INTRADERMA PRN (06:35)
[2024-06-23] MEDS: MELOXICAM 7.5 MG TAB PO PRN (06:37)
[2024-06-23] MEDS: ACETAMINOPHEN TAB 500 MG TAB PO PRN (06:37)
[2024-06-23] MEDS: IV FLUID CONTINUATION 1,000 ML IV ONE (06:45)
[2024-06-23] MEDS: LACTATED RINGERS 1,000 ML IV SCH (06:46)
[2024-06-23] MEDS: ONDANSETRON 4 MG/2 ML VIAL IVP ONE (06:46)
[2024-06-23] MEDS: DEXAMETHASONE SOD PHOSPHATE 4 MG/ML 1 ML VIAL IV ONE (06:46)
[2024-06-23] MEDS ORDERED: fentaNYL (PF) 50 MCG/ML 2 ML AMP IVP PRN (07:00)
[2024-06-23] MEDS: MIDAZOLAM 2 MG/2 ML VIAL IV PRN (07:11)
[2024-06-23] MEDS ORDERED: PROPOFOL 10 MG/ML 20 ML VIAL IV ONE (07:25)
[2024-06-23] MEDS ORDERED: fentaNYL (PF) 50 MCG/ML 2 ML AMP ONE (07:25)
[2024-06-23] MEDS ORDERED: ROPIVACAINE 5 MG/ML 30 ML VIAL ONE (07:25)
[2024-06-23] MEDS ORDERED: TRANEXAMIC 1,000 MG/100ML-NACL PREMIX BAG ONE (07:25)
[2024-06-23] MEDS ORDERED: DEXAMETHASONE SOD PHOSPHATE 4 MG/ML 1 ML VIAL ONE (07:25)
[2024-06-23] MEDS ORDERED: PHENYLEPHRINE-0.9% NACL SYG 1,000 MCG/10 ML SYRINGE ONE (07:25)
[2024-06-23] MEDS ORDERED: MIDAZOLAM 2 MG/2 ML VIAL ONE (07:25)
[2024-06-23] MEDS ORDERED: LIDOCAINE 1% INJ 10MG/ML (20 ML MDV) ONE (07:25)
[2024-06-23] MEDS: ceFAZolin 1,000 MG in SODIUM CHLORIDE 0.9% 1,000 ML IRRIGATION ONE (08:05)
[2024-06-23] MEDS: LACTATED RINGERS 1,000 ML IV ONE (08:30)
--- NOTE | 2024-06-23 09:17 | FL ---
EXAMINATION TYPE: FL guidance operating room, XR Hip Limited RT DATE OF EXAM: 06/23/2024 9:11 AM COMPARISON: Pre Operative Images if available both CT/MRI or plain film CLINICAL INDICATION: Female, 68 years old with history of RT ANTERIOR HIP; TECHNIQUE: FL guidance operating room, XR Hip Limited RT, multiple fluoroscopic images provided for p rocedure. Total fluoroscopy time: 23 seconds Total submitted images to PACS: 4 DAP: 1.6943 mGym2 Gycm2 uGym2 cGycm2 or equivalent. FINDINGS: Fluoroscopic images during internal fixation/arthroplasty demonstrate hardware in appropriate positio n. Hardware appears intact. No immediate complication identified. IMPRESSION: 1. No evidence for intraoperative complication. 2. Please see the operative/procedural note for further details. [facility], , 06/23/2024 9:15 AM
[2024-06-23] MEDS ORDERED: NALOXONE 0.4 MG/ML 1 ML VIAL IV PRN (09:21)
[2024-06-23] MEDS ORDERED: HYDROmorphone 0.5 MG/0.5 ML SYRINGE IVP PRN (09:21)
[2024-06-23] MEDS ORDERED: hydrOXYzine pamoate 25 MG CAP PO PRN (09:22)
[2024-06-23] MEDS ORDERED: MAGNESIUM HYDROXIDE 2,400 MG/30 ML CUP PO PRN (09:22)
--- NOTE | 2024-06-23 09:34 | P.OP ---
Date of Procedure: 06/23/24 Preoperative Diagnosis: Right hip severe osteoarthrosis Postoperative Diagnosis: Same Procedure(s) Performed: Right total hip arthroplastypress-fitanterior approach Implants: DePuy Corail size 11-125 degree/collared press-fit femoral stem, 36+1.5 cobalt chrome femoral head, 54 mm Osprey acetabular shell with neutral polyethylene liner. I did utilize a 25 mm x 6.5 mm cancellous screw. Anesthesia: spinal Surgeon: Joaquim Harrell [place]k #1: Fito Patterson Estimated Blood Loss (ml): 100 Pathology: none sent Condition: stable Disposition: PACU Indications for Procedure: The patient is a 68-year-old female who presents with progressive right hip pain secondary to osteoarthrosis despite conservative measures. A discussion of the risks and benefits of operative invention versus continued conservative measures was made with the patient. She opted to proceed with surgery. Operative risks include infection, neurovascular injury, development of blood clots, fracture, leg length discrepancy, instability, possible component loosening/failure and possible need for subsequent procedures was discussed. Informed consent was obtained. Operative Findings: As below Description of Procedure: The patient was brought to the operating room, and after induction of spinal anesthesia was placed supine on the [place] table. Positioning was checked with fluoroscopy. The right hip was then prepped and draped in a normal fashion. A 12 cm incision was then made starting 2 fingerbreadths distal and 3 finger breaths posterior to the ASIS in line with the proximal femur. The skin was incised sharply. Subcutaneous tissues were divided sharply. Electrocautery was used for hemostasis. The fascia was split in line with skin incision. The interval between the sartorius and tensor fascia malcolm was then bluntly developed. The posterior fascia was opened with electrocautery. The lateral circumflex vessels were identified and cauterized prior to sectioning. A retractor was placed along the superior femoral neck as well as the anterior acetabular rim. A wide capsulotomy was performed. The neck cut was then made at a 45 angle to the shaft approximately 1 1/2 cm above the level of the lesser trochanter. The head was extracted. Attention was then paid towards preparing the acetabular. Anterior and posterior retractors were placed. The remaining capsular labral tissue sharply debrided clearly defining the acetabular margins. I began reaming with a 49 mm reamer taking care to initially medialize then reaming at 45 of abduction and 20 of anteversion. Sequential reaming is performed up to 53 mm. A trial 54 mm acetabular shell was inserted in the same orientation and was fully seated. There was good rim fit and stability. Positioning was checked with fluoroscopy. The final 54 mm acetabular shell was inserted again at 45 of abduction and 20 of anteversion. This was fully seated. There was good rim fit and stability. I did place a posterior superior screw for additional stability. A 6.5 x 25 mm cancellous groove was inserted with good purchase. Again fluoroscopy was used to check the adequacy of placement. A neutral polyethylene liner was gently impacted. Care was taken to avoid any soft tissue interposition. Pulsatile lavage was utilized. Attention was then paid towards preparing the proximal femur. The central region was cleared of soft tissue. A canal finder was used to find the femoral canal. Sequential broaching was performed up to size 11 taking care to lateralize proximally. A calcar mill was used to fashion the medial calcar. There was good rotational stability. A 125 degree neck along with a 36 mm +1.5 head was placed. The hip was gently reduced. Fluoroscopy was used to check the adequacy of positioning along with leg lengths. I felt both were good. The hip was gently dislocated. The trial components were removed. The final size 11 collared 125 degree press-fit femoral stem was inserted parall el to the posterior cortex. This was fully seated and there was good rotational stability. A 36 mm +1.5 cobalt chrome femoral head was placed. This was gently impacted. The hip was then gently reduced. Final fluoroscopic view showed adequate placement implant along with jehovah's witness of leg length. Stability was checked with 80 of external rotation and 60 of extension of the right hip. The wound was irrigated with sterile lavage. The fascia was closed with running 0 Vicryl suture. There was minimal drainage therefore a deep drain was not placed. The second dose of IV TXA was given. The subcutaneous tissues were reapproximated interrupted 2-0 Vicryl sutures. The skin was reapproximated with 3-0 subcuticular strata fix suture. Skin tape and adhesive was applied. A sterile dressing was applied. The patient was then awoken from sedation and transferred to recovery room in good condition. Blood loss was estimated at 100 mL. No complications were incurred. Sponge and needle counts were correct at the end of the case. Fito Patterson PA assisted during the major components is case to include exposure, bone resection, implantation, and closure.
--- NOTE | 2024-06-23 09:39 | XR ---
EXAMINATION TYPE: XR Hip Limited RT DATE OF EXAM: 06/23/2024 9:32 AM COMPARISON: None. CLINICAL INDICATION: Female, 68 years old with history of Status post hip surgery, assess surgical al ignment, pain TECHNIQUE: AP view(s) obtained. FINDINGS: Femoral prosthesis has been placed. The acetabular component is present. Postsurgical soft tissue sly nges are evident. No acute fractures evident. IMPRESSION: 1. No acute fractures post right hip replacement [facility], , 06/23/2024 9:36 AM
[2024-06-23] MEDS: HYDROmorphone 0.5 MG/0.5 ML SYRINGE IVP PRN ×2 (09:45→15:17)
--- NOTE | 2024-06-23 09:58 | P.ANPRN ---
Procedure Note - Anesthesia - Nerve Block Performed Right Guillermo Single Time Out Performed: Yes ([id number]) Date of Procedure: 06/23/24 Location of Patient: PreOp Indication: Acute Post-Operative Pain, Dx/Pain Location, Requested by Surgeon Specifically requested for management of pain by DrKimo: Joaquim Harrell Sedation Type: Sedate with meaningful contact maintained (right hip) Preparation: Sterile Prep Position: Supine Needle Types: Pajunk Needle Gauge: 21 Ultrasound used to visualize needle placement: Yes Ultrasound used to observe medication spread: Yes Injectate: 0.5% Ropivacaine (see comment for volume) (30 mL +10 mL of normal saline + 4mg of decadron) Blood Aspirated: No Pain Paresthesia on Injection Noted: No Resistance on Injection: Normal Image Stored and Saved: Yes Events: Uneventful and Well Tolerated
[2024-06-23] MEDS: SENNOSIDES-DOCUSATE SODIUM 1 EACH TAB PO SCH (20:57)
--- NOTE | 2024-06-23 21:22 | P.CONS ---
History of Present Illness - Reason for Consult Consult date: 06/23/24 Medical management Requesting physician: Joaquim Harrell - Chief Complaint Right hip surgery - History of Present Illness I am covering Dr. Stewart neurology called me this evening, he is not feeling well Pleasant 68-year-old patient, follows with Dr. Terry Ashton. Chronic medical conditions include hyperlipidemia hypertension osteoarthritis obstructive sleep apnea. Patient has undergone right total hip arthroplasty. Pain is reasonably controlled. He tolerated dinner. No nausea vomiting. No chest pain. Laying in bed. Review of systems: GEN.: None EYES: None HEENT: None NECK: None RESPIRATORY: None CARDIOVASCULAR: None GASTROINTESTINAL: None GENITOURINARY: None MUSCULOSKELETAL: [Joint pains LYMPHATICS: None HEMATOLOGICAL: None PSYCHIATRY: None NEUROLOGICAL: None Social history: Did smoke marijuana. Alcohol occasionally. No cigarette smoking. Physical examination: VITAL SIGNS: 97.9, 96, 17, 158 x 84, 95% room air GENERAL: BMI 36.7, reclining bed awake comfortable. EYES: Pupils equal. Conjunctiva josefina l. HEENT: External appearance of nose and ears normal, oral cavity grossly normal. NECK: JVD not raised; masses not palpable. HEART: First and second heart sounds are normal; no edema. LUNGS: Respiratory rate normal; clear to auscultation. ABDOMEN: Soft, nontender, liver spleen not palpable, no masses palpable. PSYCH: Alert and oriented x3; mood and affect josefina l. MUSCULOSKELETAL:No Clubbing/cyanosis;muscles-grossly intact. Dressing over the right hip. Incision site NEUROLOGICAL: Cranial nerves grossly intact; no facial asymmetry, power and sensation grossly intact. LYMPHATICS: No lymph nodes palpable in the axilla and neck INVESTIGATIONS, reviewed in the clinical context: June 16, 2024: White count 6.1 hemoglobin 11.3 platelets 355 potassium 4.1 creatinine 0.8 sodium 141 Assessment plan: -Right total hip arthroplasty IV cefazolin for infection prophylaxis. 1 dose of Decadron. DVT prophylaxis per orthopedics team -COPD Stiolto inhaler, albuterol as needed -Hypothyroid Synthroid 25 mcg a day -Chronic urine incontinence Tolterodine -GERD Prilosec -Chronic colitis Mesalamine -Obesity BMI 36.7 Weight loss measures Care was discussed with the patient. Questions answered. Thank you Dr. Harrell Past Medical History Past Medical History: Deep Vein Thrombosis (DVT), Hyperlipidemia, Hypertension, Osteoarthritis (OA), Pulmonary Embolus (PE), Sleep Apnea/CPAP/BIPAP, Thyroid Disorder Additional Past Medical History / Comment(s): hx ulcer, colitis History of Any Multi-Drug Resistant Organisms: None Reported Past Surgical History: Hysterectomy, Tubal Ligation Additional Past Surgical History / Comment(s): little toe on rt foot surgery,abdominoplasty, liposuction, ivc filter, Past Anesthesia/Blood Transfusion Reactions: No Reported Reaction Additional Past Anesthesia/Blood Transfusion Reaction / Comm: no reaction to blood tx Past Psychological History: No Psychological Hx Reported Smoking Status: Never smoker Past Alcohol Use History: Occasional Past Drug Use History: Marijuana - Past Family History Father Family Medical History: Cancer Medications and Allergies Home Medications Medication Instructions Recorded Confirmed Type Hydrocodone/Acetaminophen [[place] 1 tab PO QID PRN 12/14/15 06/17/24 History 10-325] Multivitamins, Thera [Multivitamin] 1 tab PO DAILY 12/14/15 06/17/24 History Omeprazole [PriLOSEC] 20 mg PO AC-BID 12/14/15 06/17/24 History [place]-3/Dha/Epa/Fish Oil [Fish Oil 1 cap PO DAILY 04/22/24 06/17/24 History 500 mg Softgel] Albuterol Inhaler [Ventolin Hfa 2 puff INHALATION RT-QID PRN 05/05/24 06/17/24 History Inhaler] Mesalamine [Mesalamine ER] 1.5 gm PO QAM 05/05/24 06/17/24 History Tiotropium Br/Olodaterol HCl 2 puff INHALATION RT-DAILY 05/05/24 06/23/24 History [Stiolto Respimat Inhaler (10)] Ammonium Lactate Lotion 1 applic TOPICAL BID 05/14/24 06/23/24 History [Lac-Hydrin 12% Lotion] Azelastine HCl [Astepro] 2 spray EA NOSTRIL BID 05/14/24 06/23/24 History Ergocalciferol [Vitamin D2 (1250 1,250 mcg PO WEEKLY 05/14/24 06/17/24 History Mcg = 53386 Iu)] Levothyroxine Sodium [Synthroid] 25 mcg PO DAILY 05/14/24 06/23/24 History Montelukast [Singulair] 10 mg PO DAILY 05/14/24 06/17/24 History Tolterodine Tartrate 2 mg PO DAILY 05/14/24 06/17/24 History Dicyclomine [Bentyl] 10 mg PO DIRECTED 06/17/24 06/23/24 History Ferosul 325 mg PO DAILY 06/17/24 06/17/24 History Fexofenadine HCl [Leslie Allergy] 180 mg PO DAILY 06/17/24 06/17/24 History Fluconaszole 50 mg PO DAILY 06/17/24 06/17/24 History Hairskinnails 1 tab PO DAILY 06/17/24 06/23/24 History Losartan(Unk) 10 mg PO DAILY 06/17/24 06/17/24 History Metoprolol Tartrate [Lopressor] 06/23/24 History Allergies Allergy/AdvReac Type Severity Reaction Status Date / Time No Known Allergies Allergy Verified 05/14/24 14:05 Physical Exam Vitals: Vital Signs Temp Pulse Pulse Resp BP BP Pulse Ox 06/23/24 19:02 97.9 F 96 17 158/84 95 06/23/24 13:10 83 121/85 93 L 06/23/24 12:55 87 122/84 93 L 06/23/24 12:40 89 127/85 94 L 06/23/24 12:25 97.6 F 72 128/86 94 L 06/23/24 12:00 73 16 118/82 100 06/23/24 11:30 75 16 103/68 100 06/23/24 11:12 67 16 109/76 98 06/23/24 10:42 62 16 106/75 98 06/23/24 10:27 64 14 100/66 06/23/24 10:12 74 14 99/66 100 06/23/24 09:57 61 16 98/56 96 06/23/24 09:42 62 20 107/69 99 06/23/24 09:26 97.5 F L 72 12 107/70 98 06/23/24 07:17 73 16 132/75 98 06/23/24 06:13 97.2 F L 81 16 124/78 96 Intake and Output 06/23/24 06/23/24 06/23/24 06:59 14:59 22:59 Intake Total 200 1301 Output Total 100 Balance 200 1201 Intake: IV 200 1251 Blood Product 50 Output: Estimated Blood Loss 100 Other: Weight 106.3 kg 106.3 kg
[2024-06-23] MEDS ORDERED: ALBUTEROL NEBULIZED 2.5 MG/3 ML INHALATION PRN (22:00)
[2024-06-24] MEDS: PANTOPRAZOLE 40 MG TABLET PO SCH (00:15)
[2024-06-24] MEDS: AMMONIUM LACTATE 12% LOTION 225 GM BTL TOPICAL SCH (00:15)
[2024-06-24] MEDS: DICYCLOMINE 10 MG CAP PO SCH (00:15)
[2024-06-24] MEDS: BALSALAZIDE DISODIUM 750 MG CAPSULE PO SCH (00:15)
[2024-06-24] MEDS: AZELASTINE 137MCG/SPRAY EA NOSTRIL SCH (00:16)
[2024-06-24] MEDS: ONDANSETRON 4 MG/2 ML VIAL IVP PRN (01:43)
[2024-06-24 01:57] VITALS: TEMP 97.8
[2024-06-24] MEDS: LEVOTHYROXINE 25 MCG TAB PO SCH (06:56)
[2024-06-24] MEDS: IPRATROPIUM 0.5 MG/2.5 ML NEBU INHALATION SCH (08:44)
[2024-06-24] MEDS: MONTELUKAST 10 MG TAB PO SCH (08:56)
[2024-06-24] MEDS: HYDROcodone/APAP 10-325MG 1 EACH TAB PO PRN (08:56)
[2024-06-24] MEDS: BISOPROLOL 5 MG TAB PO SCH (08:56)
[2024-06-24] MEDS: LORATADINE 10 MG TAB PO SCH (08:56)
[2024-06-24] MEDS: MULTIVITAMINS, THERA 1 EACH TAB PO SCH (08:56)
[2024-06-24] MEDS: OXYBUTYNIN XL 5 MG TAB.ER.24 PO SCH (08:56)
[2024-06-24] MEDS: METOPROLOL TARTRATE 25 MG TAB PO SCH (08:56)
[2024-06-24] MEDS: RIVAROXABAN 10 MG TAB PO SCH (08:56)
[2024-06-24] MEDS: FERROUS SULFATE 325 MG TAB PO SCH (08:56)
[2024-06-24] MEDS ORDERED: NON FORMULARY DRUG (Omega-3/Dha/Epa/Fish Oil [Fish Oil 500 Mg Softgel] 1 EACH Capsule) PO SCH (09:00)
[2024-06-24] MEDS ORDERED: NON FORMULARY DRUG (Fexofenadine Hcl [Allegra Allergy] 180 MG Tablet) PO SCH (09:00)
[2024-06-24] MEDS ORDERED: LOSARTAN 10 MG PO SCH (09:00)
[2024-06-24 09:10] VITALS: BP 126/77; PULSE 90; RESP 16
[2024-06-24 09:48] LABS: Basophils # (A) 0.01 X 10*3/uL (0.00-0.10); Basophils % (A) 0.1 %; Eosinophils # (A) 0 X 10*3/uL (0.04-0.35); Eosinophils % (A) 0 %; HGB 9.1 g/dL (12.0-15.0); Lymphocytes # (A) 1.28 X 10*3/uL (0.90-5.00); MCH 29.9 pg (27.0-32.0); MCHC 31.4 g/dL (32.0-37.0); MCV 95.4 FL (80.0-97.0); Mean Platelet Volume 8.3 FL (9.5-12.2); Monocytes # (A) 0.86 X 10*3/uL (0.20-1.00); Monocytes % (A) 8.1 %; NRBC Per 100 WBC 0 X 10*3/uL (0.00-0.01); Neutrophils # (A) 8.43 X 10*3/uL (1.80-7.70); Neutrophils % (A) 79.3 %; Platelet Count 263 X 10*3/uL (140-440); RBC 3.04 X 10*6/uL (4.10-5.20); RDW 14.4 % (11.5-14.5); WBC 10.63 X 10*3/uL (4.50-10.00)
[2024-06-24] MEDS: FORMOTEROL FUMARATE 20 MCG/2 ML NEBU INHALATION SCH (11:54)
[2024-06-24] MEDS: TIOTROPIUM 2.5 MCG INHALER INHALATION SCH (11:54)
--- NOTE | 2024-06-24 12:56 | P.PN ---
Subjective Progress Note Date: 06/24/24 Principal diagnosis: Status post direct anterior right total hip arthroplasty patient evaluated today at bedside, she is resting in her hospital bed. Patient did very well with physical therapy. She has been urinating with no issues. Patient is pain is currently controlled. She denies any headaches, headedness, chest pain or shortness of breath Objective - Vital Signs Vital signs: Vital Signs Temp 97.8 F 06/24/24 07:28 Pulse 90 06/24/24 08:56 Resp 16 06/24/24 08:56 BP 126/77 06/24/24 07:28 Pulse Ox 93 L 06/24/24 07:28 FiO2 Intake & Output 06/23/24 06/24/24 06/24/24 18:59 06:59 18:59 Intake Total 1301 Output Total 100 Balance 1201 Weight 106.3 kg Intake: IV 1251 Blood Product 50 Output: Estimated Blood Loss 100 Other: Voiding Method Toilet # Voids 3 - Exam Right lower extremity: Incision is clean, dry, and intact. The exofin fusion tape is in good condition. There is minimal soft tissue swelling and ecchymosis surrounding the medial and lateral aspects of the incision. Calf is soft, no tenderness with palpation. Plantar flexion, dorsiflexion, EHL, FHL are intact. Sensory exam to light touch throughout the extremity is intact, dorsal pedis pulses 2+. - Labs CBC & Chem 7: 06/24/24 03:53 Labs: Abnormal Lab Results - Last 24 Hours (Table) 06/24/24 Range/Units 03:53 WBC 10.63 H (4.50-10.00) X 10*3/uL RBC 3.04 L (4.10-5.20) X 10*6/uL Hgb 9.1 L (12.0-15.0) g/dL Hct 29.0 L (37.2-46.3) % MCHC 31.4 L (32.0-37.0) g/dL MPV 8.3 L (9.5-12.2) FL Immature Gran # 0.05 H (0.00-0.04) X 10*3/uL Neutrophils # 8.43 H (1.80-7.70) X 10*3/uL Eosinophils # 0 L (0.04-0.35) X 10*3/uL Assessment and Plan Assessment: Postoperative day #1 status post direct anterior right total hip arthroplasty Plan: Pain control, plan to discharge on Percocet 5 mg / 325 mg DVT prophylaxis, patient does have Eliquis from her previous hip replacement that she will utilize for the next 2 weeks Wound care, showering instructions along with icing and elevating techniques were discussed Home PT/nursing after discharge Medical recommendations appreciated Discharge planning: Plan for discharge home today Time with Patient: Less than 30
--- NOTE | 2024-06-24 12:59 | P.DS ---
Providers Date of admission: 06/23/2024 Expected date of discharge: 06/24/24 Attending physician: Joaquim Harrell Consults: 06/23/24 09:22 Consult Physician Routine Consulting Provider: Terry Ashton Reason/Comments: medical management s/p direct anterior right total hip arthroplasty Do you want consulting provider notified?: Yes Primary care physician: Terry Ashton Hospital Course: Date of admission: 06/23/2024 Date of discharge: 06/24/2024 Admission diagnosis: Status post direct anterior right total hip arthroplasty Discharge diagnosis: Same Attending physician: Dr. Harrell Surgical procedures: Direct anterior right total hip arthroplasty Brief history: Patient is a 68-year-old female with a history of progressive primary right hip osteoarthritis. At this point patient has failed conservative treatment measures and has opted to proceed with a elective direct anterior right total hip arthroplasty. Hospital course: Details of patient's surgery can be found in operative report. Patient tolerated the procedure well and was subsequently transported to orthopedic floor. Patient's orthopeidc and medical care was provided daily. Patient had daily laboratory tests performed for evaluation of overall blood counts. Patient had daily physical therapy to include strengthening range of motion as well as education with walker ambulation. Patient was treated with Xarelto for their postoperative DVT prophylaxis during their inpatient stay. Patient was noted to have a relatively uneventful postoperative course. Patient reported satisfactory pain control with oral pain medications by postoperative day 00. Patient showed satisfactory progress with physical therapy. Patient moved steadily through the program and had no difficulty meeting the goals by postoperative day 1. Given patient's otherwise satisfactory course and having met physical therapy goals, plan is to discharge patient home on postoperative day 1. Discharge condition/disposition: Patient will be discharged home in stable condition. Discharge medications: Instructions are given on resumption of patient's normal daily medications per primary care recommendation, in addition patient will be prescribed Percocet 5 mg / 325 mg, ferrous sulfate 325 mg. Discharge instructions: 1. Wound care and infection precautions, keep incision dry and covered while showering, no lotions, creams, moisturizers. No soaking, tubs, pools, hottubs. Do not scrub over the incision. 2. Weight-bear as tolerated with walker / cane until follow-up. 3. Ice and elevate when necessary. Do not exceed 20 minutes per hour with ice pack. 4. Utilize compression sleeve until seen at first follow up appointment. 5. Visiting nursing care. 6. Home physical therapy. 7. Pain meds and anticoagulants per prescription. 8. Pain medication has potential to cause constipation. Increase oral fluid and fiber intake. Contact primary care provider if you have not had a bowel movement within 48 hours after discharge 9. No anti-inflammatory medication until discussed at first post operative visit, this including Motrin, Aleve, Mobic, Diclofenac. 10. Follow up in office at 2 weeks postop with Jaiden Gutierrez PA-C/Fito Melendez 11. Follow up with your primary care doctor 7-10 days after discharge. 12. Contact [facility] with any questions, . Procedures: Direct anterior right total hip arthroplasty Patient Condition at Discharge: Good Plan - Discharge Summary Discharge Rx Participant: No New Discharge Prescriptions: New Sennosides-Docusate Sodium [Senokot-S] 2 each PO HS #30 tab Bisoprolol [Zebeta] 2.5 mg PO HS tab Ferrous Sulfate [Iron (65 MG Elemental)] 325 mg PO DAILY #30 tab oxyCODONE HCL/ACETAMINOPHEN [Percocet 5-325 mg] 1 tab PO Q6HR PRN 7 Days #28 tab PRN Reason: Pain Continue Omeprazole [PriLOSEC] 20 mg PO AC-BID Multivitamins, Thera [Multivitamin (formulary)] 1 tab PO DAILY Albuterol Inhaler [Ventolin Hfa Inhaler] 2 puff INHALATION RT-QID PRN PRN Reason: Shortness Of Breath Mesalamine [Mesalamine ER] 1.5 gm PO QAM Tiotropium Br/Olodaterol HCl [Stiolto Respimat Inhaler (10)] 2 puff INHALATION RT-DAILY Levothyroxine Sodium [Synthroid] 25 mcg PO DAILY Ammonium Lactate Lotion [Lac-Hydrin 12% Lotion] 1 applic TOPICAL BID Montelukast [Singulair] 10 mg PO DAILY Dicyclomine [Bentyl] 10 mg PO DIRECTED Ferosul 325 mg PO DAILY Metoprolol Tartrate [Lopressor] [place]-3/Dha/Epa/Fish Oil [Fish Oil 500 mg Softgel] 1 cap PO DAILY Azelastine HCl [Astepro] 2 spray EA NOSTRIL BID Ergocalciferol [Vitamin D2 (1250 Mcg = 79002 Iu)] 1,250 mcg PO WEEKLY Tolterodine Tartrate 2 mg PO DAILY Fexofenadine HCl [Leslie Allergy] 180 mg PO DAILY Losartan(Unk) 10 mg PO DAILY Fluconaszole 50 mg PO DAILY No Action Hydrocodone/Acetaminophen [[place] 10-325] 1 tab PO QID PRN PRN Reason: Pain Hairskinnails 1 tab PO DAILY Discharge Medication List Hydrocodone/Acetaminophen [[place] 10-325] 1 tab PO QID PRN 12/14/15 [History] Multivitamins, Thera [Multivitamin (formulary)] 1 tab PO DAILY 12/14/15 [History] Omeprazole [PriLOSEC] 20 mg PO AC-BID 12/14/15 [History] [place]-3/Dha/Epa/Fish Oil [Fish Oil 500 mg Softgel] 1 cap PO DAILY 04/22/24 [History] Albuterol Inhaler [Ventolin Hfa Inhaler] 2 puff INHALATION RT-QID PRN 05/05/24 [History] Mesalamine [Mesalamine ER] 1.5 gm PO QAM 05/05/24 [History] Tiotropium Br/Olodaterol HCl [Stiolto Respimat Inhaler (10)] 2 puff INHALATION RT-DAILY 05/05/24 [History] Ammonium Lactate Lotion [Lac-Hydrin 12% Lotion] 1 applic TOPICAL BID 05/14/24 [History] Azelastine HCl [Astepro] 2 spray EA NOSTRIL BID 05/14/24 [History] Ergocalciferol [Vitamin D2 (1250 Mcg = 21064 Iu)] 1,250 mcg PO WEEKLY 05/14/24 [History] Levothyroxine Sodium [Synthroid] 25 mcg PO DAILY 05/14/24 [History] Montelukast [Singulair] 10 mg PO DAILY 05/14/24 [History] Tolterodine Tartrate 2 mg PO DAILY 05/14/24 [History] Dicyclomine [Bentyl] 10 mg PO DIRECTED 06/17/24 [History] Ferosul 325 mg PO DAILY 06/17/24 [History] Fexofenadine HCl [Leslie Allergy] 180 mg PO DAILY 06/17/24 [History] Fluconaszole 50 mg PO DAILY 06/17/24 [History] Hairskinnails 1 tab PO DAILY 06/17/24 [History] Losartan(Unk) 10 mg PO DAILY 06/17/24 [History] Metoprolol Tartrate [Lopressor] 06/23/24 [History] Bisoprolol [Zebeta] 2.5 mg PO HS tab 06/24/24 [Rx] Ferrous Sulfate [Iron (65 MG Elemental)] 325 mg PO DAILY #30 tab 06/24/24 [Rx] Sennosides-Docusate Sodium [Senokot-S] 2 each PO HS #30 tab 06/24/24 [Rx] oxyCODONE HCL/ACETAMINOPHEN [Percocet 5-325 mg] 1 tab PO Q6HR PRN 7 Days #28 tab 06/24/24 [Rx] Follow up Appointment(s)/Referral(s): Fito Patterson PAC [PHYSICIAN MACHINE OPERATOR [employer]] - 2 Weeks [facility], [NON-STAFF] - 1-2 Days ([facility] will call you to schedule your in home nursing and physical therapy visits.) Patient Instructions/Handouts: Anterior Hip Replacement (GEN) Activity/Diet/Wound Care/Special Instructions: Orthopedic Discharge Instructions: 1. Wound care and infection precautions, keep incision dry and covered while showering, no lotions, creams, moisturizers. No soaking, pools, hot tubs. Do not scrub over incision. 2. Weight-bear as tolerated with walker / cane until follow-up. 3. Ice and elevate when necessary. Do not exceed 20 minutes per hour with ice pack. 4. Utilize compression sleeve until seen at first follow up appointment. 5. Pain meds and anticoagulants per prescription. 6. Pain medication has potential to cause constipation. Increase oral fluid and fiber intake. Contact primary care provider if you have not had a bowel movement within 48 hours after discharge. 7. No anti-inflammatory medication until discussed at first post operative visit, this including Motrin, Aleve, Mobic, Diclofenac. 8. Follow up in office at 2 weeks postop with Jaiden Gutierrez PA-C / Fito Patterson PA-C 9. Follow up with your primary care doctor 7-10 days after discharge. 10. Contact [facility] with any questions, . Keep incision clean, dry, intact. While showering, cover fusion tape with Saran wrap. Keep fusion tape on until follow-up appointment in office in 2 weeks. Discharge Disposition: HOME WITH HOME HEALTH SERVICES
--- NOTE | 2024-06-24 13:22 | P.PN ---
Progress Note - Text Progress Note Date: 06/24/24 - Chief Complaint Right hip surgery - History of Present Illness I am covering Dr. Stewart neurology called me this evening, he is not feeling well Pleasant 68-year-old patient, follows with Dr. Terry Ashton. Chronic medical conditions include hyperlipidemia hypertension osteoarthritis obstructive sleep apnea. Patient has undergone right total hip arthroplasty. Pain is reasonably controlled. He tolerated dinner. No nausea vomiting. No chest pain. Laying in bed. June 24: Pain controlled. Did tolerate a diet. Discussed patient blood pressure medications. Told to hold off on Lopressor until 2 consecutive days systolic blood pressure above 140. She is to keep a log of daily blood pressure and take it to her PCP. Iron supplement added. Questions answered. Active Medications Hydrocodone Bitart/Acetaminophen (Hydrocodone/Apap 10-325mg 1 Each Tab) 1 each PO Q6H PRN PRN Reason: Pain Scale 4 to 6 Stop: 07/23/24 09:20 Last Admin: 06/24/24 08:56 Dose: 1 each Albuterol Sulfate (Albuterol Nebulized 2.5 Mg/3 Ml) 2.5 mg INHALATION RT-QID PRN PRN Reason: Shortness Of Breath Azelastine HCl (Azelastine 137mcg/[place]) 2 spray EA NOSTRIL BID [facility] Last Admin: 06/24/24 08:57 Dose: Not Given Balsalazide (Balsalazide Disodium 750 Mg Capsule) 2,250 mg PO TID [facility] Last Admin: 06/24/24 08:55 Dose: 2,250 mg Bisoprolol Fumarate (Bisoprolol 5 Mg Tab) 2.5 mg PO DAILY [facility] Last Admin: 06/24/24 08:56 Dose: 2.5 mg Dicyclomine HCl (Dicyclomine 10 Mg Cap) 10 mg PO BID [facility] Last Admin: 06/24/24 08:56 Dose: 10 mg Ergocalciferol (Ergocalciferol 1,250 Mcg (50,000 Iu) Capsule) 1,250 mcg PO WEEKLY [facility] Ferrous Sulfate (Ferrous Sulfate 325 Mg Tab) 325 mg PO DAILY [facility] Last Admin: 06/24/24 08:56 Dose: 325 mg Formoterol Fumarate (Formoterol Fumarate 20 Mcg/2 Ml Nebu) 20 mcg INHALATION RT-BID [facility] Last Admin: 06/24/24 11:54 Dose: Not Given Hydromorphone HCl (Hydromorphone 0.5 Mg/0.5 Ml Syringe) 0.5 mg IVP Q3HR PRN PRN Reason: Pain Scale 7 to 10 Stop: 07/23/24 09:20 Last Admin: 06/24/24 01:44 Dose: 0.5 mg Hydromorphone HCl (Hydromorphone 0.5 Mg/0.5 Ml Syringe) 0.25 mg IVP Q3HR PRN PRN Reason: Pain Scale 4 to 6 Stop: 07/23/24 09:20 Hydroxyzine Pamoate (Hydroxyzine Pamoate 25 Mg Cap) 25 mg PO Q4HR PRN PRN Reason: Nausea, Anxiety, Pain Control Stop: 07/23/24 09:21 Lactated Ringer's (Lactated Ringers) 1,000 mls @ 20 mls/hr IV .Q24H [facility] Stop: 07/23/24 06:34 Last Admin: 06/23/24 06:46 Dose: 20 mls/hr Lactic Acid (Ammonium Lactate 12% Lotion 225 Gm Btl) 1 applic TOPICAL BID [facility]; Protocol Last Admin: 06/24/24 08:57 Dose: Not Given Levothyroxine Sodium (Levothyroxine 25 Mcg Tab) 25 mcg PO DAILY@0630 [facility] Last Admin: 06/24/24 06:56 Dose: 25 mcg Lidocaine HCl (Lidocaine 1% (10mg/Ml) For Iv Start) 0.1 ml INTRADERMA PER PROTOCOL PRN PRN Reason: IV Start Stop: 07/23/24 06:34 Loratadine (Loratadine 10 Mg Tab) 10 mg PO DAILY [facility] Last Admin: 06/24/24 08:56 Dose: 10 mg Magnesium Hydroxide (Magnesium Hydroxide 2,400 Mg/30 Ml Cup) 2,400 mg PO DAILY PRN PRN Reason: Constipation Stop: 07/23/24 09:21 Metoprolol Tartrate (Metoprolol Tartrate 25 Mg Tab) 25 mg PO DAILY [facility] Last Admin: 06/24/24 08:56 Dose: 25 mg Montelukast Sodium (Montelukast 10 Mg Tab) 10 mg PO DAILY [facility] Last Admin: 06/24/24 08:56 Dose: 10 mg Multivitamins (Multivitamins, Thera 1 Each Tab) 1 each PO DAILY [facility] Last Admin: 06/24/24 08:56 Dose: 1 each Naloxone HCl (Naloxone 0.4 Mg/Ml 1 Ml Vial) 0.2 mg IV Q2M PRN PRN Reason: Opioid Reversal Stop: 07/23/24 09:20 Ondansetron HCl (Ondansetron 4 Mg/2 Ml Vial) 8 mg IVP Q6HR PRN PRN Reason: Nausea And Vomiting Last Admin: 06/24/24 01:43 Dose: 4 mg Oxybutynin Chloride (Oxybutynin Xl 5 Mg Tab.Er.24) 5 mg PO DAILY [facility] Last Admin: 06/24/24 08:56 Dose: 5 mg Pantoprazole Sodium (Pantoprazole 40 Mg Tablet) 40 mg PO AC-BID [facility] Last Admin: 06/24/24 00:15 Dose: 40 mg Rivaroxaban (Rivaroxaban 10 Mg Tab) 10 mg PO DAILY [facility]; Protocol Stop: 07/29/24 08:59 Last Admin: 06/24/24 08:56 Dose: 10 mg Senna/Docusate Sodium (Sennosides-Docusate Sodium 1 Each Tab) 2 each PO HS [facility] Stop: 07/23/24 20:59 Last Admin: 06/23/24 20:57 Dose: 2 each Tiotropium Strong (Tiotropium 2.5 Mcg Inhaler) 2 puff INHALATION RT-DAILY [facility] Last Admin: 06/24/24 11:54 Dose: Not Given Social history: Did smoke marijuana. Alcohol occasionally. No cigarette smoking. Physical examination: VITAL SIGNS: 97.8, 90, 16, 126 x 77, 93% room air GENERAL: BMI 36.7, comfortable EYES: Pupils equal. Conjunctiva josefina l. HEENT: External appearance of nose and ears normal, oral cavity grossly normal. NECK: JVD not raised; masses not palpable. HEART: First and second heart sounds are normal; no edema. LUNGS: Respiratory rate normal; clear to auscultation. ABDOMEN: Soft, nontender, liver spleen not palpable, no masses palpable. PSYCH: Alert and oriented x3; mood and affect josefina l. MUSCULOSKELETAL:No Clubbing/cyanosis;muscles-grossly intact. Incision site healing well INVESTIGATIONS, reviewed in the clinical context: June 24: White count 10.6 hemoglobin 9.1 platelets 263 June 16, 2024: White count 6.1 hemoglobin 11.3 platelets 355 potassium 4.1 creatinine 0.8 sodium 141 Assessment plan: -Right total hip arthroplasty IV cefazolin for infection prophylaxis. 1 dose of Decadron. Per Ortho patient to resume her Eliquis that she has at home as given instructions by them -Acute postprocedure blood loss anemia expected from surgery Ferrous sulfate -COPD Stiolto inhaler, albuterol as needed -Hypothyroid Synthroid 25 mcg a day -Chronic urine incontinence Tolterodine -GERD Prilosec -Chronic colitis Mesalamine -Obesity BMI 36.7 Weight loss measures Care was discussed with the patient. Blood pressure medication instructions discussed. Add ferrous sulfate. Eliquis as per Ortho. Thank you Dr. Harrell Past Medical History Past Medical History: Deep Vein Thrombosis (DVT), Hyperlipidemia, Hypertension, Osteoarthritis (OA), Pulmonary Embolus (PE), Sleep Apnea/CPAP/BIPAP, Thyroid Disorder Additional Past Medical History / Comment(s): hx ulcer, colitis History of Any Multi-Drug Resistant Organisms: None Reported Past Surgical History: Hysterectomy, Tubal Ligation Additional Past Surgical History / Comment(s): little toe on rt foot surgery,abdominoplasty, liposuction, ivc filter, Past Anesthesia/Blood Transfusion Reactions: No Reported Reaction Additional Past Anesthesia/Blood Transfusion Reaction / Comm: no reaction to blood tx Past Psychological History: No Psychological Hx Reported Smoking Status: Never smoker Past Alcohol Use History: Occasional Past Drug Use History: Marijuana
[2024-06-30] MEDS ORDERED: ERGOCALCIFEROL 1,250 MCG (50,000 IU) CAPSULE PO SCH (09:00)
== END 2024-06-24 14:54 | disposition home health service (06) ==
LOC: OR 05:40 → 4SSUR 12:05 → OR 06-24 14:54
PROVIDERS: ATTEND Orthopaedic Surgery
DX: M16.11 Unilateral primary osteoarthritis, right hip (principal); E78.5 Hyperlipidemia, unspecified; I10 Essential (primary) hypertension; G47.33 Obstructive sleep apnea (adult) (pediatric); Z86.711 Personal history of pulmonary embolism; Z86.718 Personal history of other venous thrombosis and embolism; Z90.710 Acquired absence of both cervix and uterus; Z79.01 Long term (current) use of anticoagulants; Z79.890 Hormone replacement therapy; Z79.899 Other long term (current) drug therapy
CPT/HCPCS: 94640; 97161; 97165; 64999; 85025; 73501; 27130; 64447; C1776; J2250; J1100; J0690 ×3; J2405 ×2; J1171 ×2

== ENCOUNTER → 2024-07-31 | Outpatient (CLI) | payer MEDICARE, OTHER ==
--- NOTE | 2024-07-31 12:40 | BD ---
EXAMINATION TYPE: Axial Bone Density DATE OF EXAM: 07/31/2024 CLINICAL HISTORY: 69 years old Female. ICD-10 CODE: Z78.0 MENOPAUSAL WO HRT , Additional History: Height: 66.5 Weight: 237 FRAX RISK QUESTIONS: Secondary Osteoporosis: RISK FACTORS HISTORY OF: Surgery to Spine/Hip(right/left)/Wrist (right/left): Ervin hip replacements When: 2023,2024 MEDICATIONS: Thyroid Medications: Which medication: Levothyroxine How Long: about 30 years EXAM MEASUREMENTS: Bone mineral densitometry was performed using the [employer]. Bone mineral density as measured about the Lumbar spine is: ----- L1-L4(G/cm2): 1.352 T Score Values are as follows: ----- L1: 2.4 ----- L2: 0.9 ----- L3: 1.6 ----- L4: 1.0 ----- L1-L4: 1.4 Z Score Values are as follows: ----- L1: 2.2 ----- L2: 0.7 ----- L3: 1.3 ----- L4: 0.7 ----- L1-L4: 1.2 First dexa at [facility] Bone mineral density about the L Wrist (g/cm2): 0.703 T Score values are as follows: -----Dist. R+U: -0.1 -----Prox. R+U: 0.9 -----Radius total: 0.5 Z Score values are as follows: -----Dist. R+U: 0.8 -----Prox. R+U: 1.8 -----Radius total: 1.2 First dexa at [facility] FRAX%s: No FRAX IMPRESSION: Normal (Values between +1 and -1 indicate normal bone mass). Consider repeating this study in 5 year s or sooner if there is some new clinical indication. NOTE: T-SCORE=SD OF THE YOUNG ADULT MEAN. [facility], Workstation: 3, 07/31/2024 12:38 PM
--- NOTE | 2024-08-03 07:25 | MM ---
Reason for Exam: Screening (asymptomatic). Last mammogram was performed 1 year(s) and 1 month(s) ago. Patient History: Menarche at age 13. First Full-Term at age 26. Postmenopausal. Breast cancer, right, age 60. Previous chest radiation therapy. Previous chemotherapy. Daughter had breast cancer, age 30. Prior Study Comparison: 05/24/2022 Bilateral Diagnostic Mammogram, [facility]. 06/26/2023 Bilateral Diagnostic Mammogram, [facility]. Tissue Density: The breasts are extremely dense, which lowers the sensitivity of mammography. Findings: Analyzed By CAD. Right breast: There is no suspicious group of microcalcifications or new suspicious mass. Benign-appearing calcifications right breast. Left breast: There is no suspicious group of microcalcifications or new suspicious mass. Overall Assessment: Negative, BI-RAD 1 Management: Screening Mammogram of both breasts in [address] [facility] will attempt to contact patient to return for supplemental views and ultrasound if indicated. Patient should continue monthly self-breast exams. A clinical breast exam by your physician is recommended on an annual basis. This exam should not preclude additional follow-up of suspicious palpable abnormalities. Note on Kristin scores and lifetime risk: 1. A Kristin score greater than 3% is considered moderate risk. If this is the case, consider specialist referral to assess eligibility for a risk reducing agent. 2. If overall lifetime risk for the development of breast cancer is 20% or higher, the patient may qualify for future screening with alternating mammogram and breast MRI. [facility], , 08/03/2024 7:22 AM. Electronically signed and approved by: Leroy Nugent DO
== END | disposition home or self-care (01) ==
LOC: RADMAMWWP 10:48
PROVIDERS: ATTEND Family Medicine
DX: Z12.31 Encounter for screening mammogram for malignant neoplasm of breast (principal); R92.343 Mammographic extreme density, bilateral breasts; M85.88 Other specified disorders of bone density and structure, other site; Z85.3 Personal history of malignant neoplasm of breast; Z80.3 Family history of malignant neoplasm of breast
CPT/HCPCS: 77063; 77067; 77080

== ENCOUNTER → 2024-08-17 | Outpatient (CLI) | payer MEDICARE, OTHER ==
[2024-08-17 15:07] LABS: HCT 34.7 % (37.2-46.3); HGB 10.8 g/dL (12.0-15.0); MCH 29.8 pg (27.0-32.0); MCHC 31.1 g/dL (32.0-37.0); MCV 95.6 FL (80.0-97.0); Mean Platelet Volume 8.3 FL (9.5-12.2); NRBC Per 100 WBC 0 X 10*3/uL (0.00-0.01); Platelet Count 292 X 10*3/uL (140-440); RBC 3.63 X 10*6/uL (4.10-5.20); RDW 14.9 % (11.5-14.5)
[2024-08-17 15:26] LABS: ALT 14 U/L (8-44); AST 22 U/L (13-35); Albumin 3.7 g/dL (3.8-4.9); Albumin/Globulin Ratio 1.32 Ratio (1.60-3.17); Alkaline Phosphatase 166 U/L (41-126); BUN/Creat Ratio 18.25 Ratio (12.00-20.00); Blood Urea Nitrogen 14.6 mg/dL (9.0-27.0); Calcium 8.5 mg/dL (8.7-10.3); Carbon Dioxide 26.9 mmol/L (21.6-31.8); Chloride 106 mmol/L (96-109); Globulin 2.8 g/dL (1.6-3.3); Glucose 112 mg/dL (70-110); Potassium 4.2 mmol/L (3.5-5.5); Sodium 142 mmol/L (135-145); Total Bilirubin 0.3 mg/dL (0.3-1.2); Total Protein 6.5 g/dL (6.2-8.2)
== END | disposition home or self-care (01) ==
LOC: LABWHC1 09:16
PROVIDERS: ATTEND Nurse Practitioner Family
DX: K51.90 Ulcerative colitis, unspecified, without complications (principal)
CPT/HCPCS: 36415; 80053; 85027

== ENCOUNTER → 2024-08-18 | Outpatient (CLI) | payer MEDICARE, OTHER ==
--- NOTE | 2024-08-18 11:12 | MR ---
EXAMINATION TYPE: MR lumbar spine wo/w con DATE OF EXAM: 08/18/2024 COMPARISON: NONE HISTORY: Low back pain into hilario thigh. Lumbar disc disease. TECHNIQUE: Multiplanar, multisequence images of the lumbar spine is performed without and with IV contrast, util izing 10 mL intravenous Gadobutrol FINDINGS: Sagittal images of the lumbar spine show vertebral body heights and alignment to appear sat isfactory. There is disc desiccation L3-L4 through the L5-S1 levels. Disc space heights are maintaine d. The conus medullaris is normal in position and signal ending at mid L1 level. A few small scattere d osseous hemangiomas are present. No abnormal postcontrast enhancement is seen. Axial images beginning at labeled T10-T11 level. There is mild/moderate broad-based disc bulge mildly effacing the anterior thecal sac. Axial images at T11-T12, T12-L1, and L1-L2 levels appear within normal limits. Axial images at L2-L3 level show mild/moderate facet arthropathy and ligamentum flavum hypertrophy on axial image 13. Spinal canal is preserved. Bilateral neural foramina are patent. Axial images at L3-L4 level show moderate to advanced facet arthropathy bilaterally. There is mild br oad-based disc bulge. Spinal canal is preserved. Axial images at L4-L5 level show moderate to advanced facet arthropathy and ligamentum flavum hypertr ophy bilaterally. There is some effacement of the left posterior lateral thecal sac. There is mild br oad disc bulge. Bilateral neural foramina are patent. Axial images at L5-S1 level show moderate facet arthropathy bilaterally. There is mild broad disc bul ge without spinal canal is preserved. There is mild to moderate right-sided neural foraminal narrowin g seen. No suspicious retroperitoneal findings are present. IMPRESSION: Multilevel degenerative change in the thoracolumbar spine as detailed above. [facility], , 08/18/2024 11:10 AM
== END | disposition home or self-care (01) ==
LOC: RADMRIMAIN 08:25
PROVIDERS: ATTEND Family Medicine
DX: M47.815 Spondylosis without myelopathy or radiculopathy, thoracolumbar region (principal); M51.360 Other intervertebral disc degeneration, lumbar region with discogenic back pain only; M99.73 Connective tissue and disc stenosis of intervertebral foramina of lumbar region
CPT/HCPCS: 72158; A9585

== ENCOUNTER 2024-08-19 11:13 | Day surgery (SDC) | payer MEDICARE, OTHER ==
[2024-08-19] MEDS: IV FLUID CONTINUATION 1,000 ML IV ONE (11:56)
[2024-08-19 11:58] VITALS: TEMP 97
[2024-08-19] MEDS: LACTATED RINGERS 1,000 ML IV SCH (12:07)
[2024-08-19] MEDS ORDERED: PROPOFOL 10 MG/ML 20 ML VIAL IV ONE (13:27)
--- NOTE | 2024-08-19 13:42 | P.PCN ---
Date of Procedure: 08/19/24 Procedure(s) Performed: BRIEF HISTORY: Patient is a 69-year-old pleasant white female scheduled for an elective colonoscopy as a part of screening for longstanding history of ulcerative colitis diagnosed in 2008. She remains in clinical remission. PROCEDURE PERFORMED: Colonoscopy biopsy. PREOPERATIVE DIAGNOSIS: Screening for longstanding history of ulcerative colitis. IV sedation per Anesthesia. PROCEDURE: After informed consent was obtained, the patient, was brought into the endoscopy unit. IV sedation was administered by Anesthesia under continuous monitoring. Digital rectal examination was normal. Initially the Olympus CF-160 flexible video colonoscope was then inserted in the rectum, gradually advanced into the cecum without any difficulty. Careful examination was performed as the scope was gradually being withdrawn. Ileocecal valve and the appendiceal orifice were visualized and appeared normal. Prep was excellent. Mucosa of the cecum, ascending colon, transverse colon, descending colon normal. There was mild patchy areas of erythema noted in the sigmoid colon extending from 25 to 40 cm from the incisors and biopsies were done from this area. Scattered sigmoid diverticulosis seen., The rectum appeared normal. Retroflexion was performed in the rectum and no lesions were seen. The patient tolerated the procedure well. IMPRESSION: Patchy areas of erythema noted in the sigmoid colon extending from 25 to 40 cm from the anal verge status post multiple biopsies Scattered sigmoid diverticulosis Rest of the colon appeared normal RECOMMENDATIONS: Findings of this examination were discussed with the patient as well as her family. She was advised to follow-up with the biopsy results.. Recommended repeat colonoscopy in 2 years.
[2024-08-19 13:47] VITALS: RESP 14
[2024-08-19 14:02] VITALS: BP 134/87; PULSE 68
== END 2024-08-19 14:19 | disposition home or self-care (01) ==
LOC: ORWHC2ENDO 11:13
PROVIDERS: ATTEND Internal Medicine Gastroenterology
DX: K62.89 Other specified diseases of anus and rectum (principal); K57.30 Diverticulosis of large intestine without perforation or abscess without bleeding; K51.90 Ulcerative colitis, unspecified, without complications; I10 Essential (primary) hypertension; G47.33 Obstructive sleep apnea (adult) (pediatric); M19.90 Unspecified osteoarthritis, unspecified site; L98.499 Non-pressure chronic ulcer of skin of other sites with unspecified severity; Z86.718 Personal history of other venous thrombosis and embolism; Z86.711 Personal history of pulmonary embolism; Z86.0100 Personal history of colon polyps, unspecified; Z99.89 Dependence on other enabling machines and devices; Z85.3 Personal history of malignant neoplasm of breast
CPT/HCPCS: 88305; 45380; J2704

== ENCOUNTER → 2024-12-14 | Outpatient (CLI) | payer MEDICARE, OTHER ==
[2024-12-14 15:59] LABS: Anion Gap 11.90 mmol/L (4.00-12.00); BUN/Creat Ratio 16.12 Ratio (12.00-20.00); Blood Urea Nitrogen 12.9 mg/dL (9.0-27.0); Carbon Dioxide 27.1 mmol/L (21.6-31.8); Chloride 101 mmol/L (96-109); Glucose 96 mg/dL (70-110); Iron 66 UG/DL (50-170); Potassium 3.7 mmol/L (3.5-5.5); Sodium 140 mmol/L (135-145); Total Iron Binding Capacity 399 UG/DL (228-460)
[2024-12-14 16:00] LABS: ALT 17 U/L (8-44); AST 25 U/L (13-35); Albumin 4.0 g/dL (3.8-4.9); Albumin/Globulin Ratio 1.54 Ratio (1.60-3.17); Alkaline Phosphatase 173 U/L (41-126); Calcium 8.5 mg/dL (8.7-10.3); Ferritin 36.8 ng/mL (10.0-291.0); Globulin 2.6 g/dL (1.6-3.3); Total Protein 6.6 g/dL (6.2-8.2)
[2024-12-14 16:07] LABS: HCT 37.8 % (37.2-46.3); HGB 12.2 g/dL (12.0-15.0); MCH 30.5 pg (27.0-32.0); MCHC 32.3 g/dL (32.0-37.0); MCV 94.5 FL (80.0-97.0); NRBC Per 100 WBC 0 X 10*3/uL (0.00-0.01); Platelet Count 248 X 10*3/uL (140-440); RBC 4.00 X 10*6/uL (4.10-5.20); RDW 14.5 % (11.5-14.5); WBC 5.62 X 10*3/uL (4.50-10.00)
== END | disposition home or self-care (01) ==
LOC: LABWHC1 11:21
PROVIDERS: ATTEND Nurse Practitioner Family
DX: K51.90 Ulcerative colitis, unspecified, without complications (principal); D64.9 Anemia, unspecified; R74.8 Abnormal levels of other serum enzymes
CPT/HCPCS: 36415; 80053; 82728; 83516; 83540; 83550; 85027